=== PATIENT | male | born 1995 | race American Indian/Alaskan Native ===

== ENCOUNTER 2017-04-19 07:45 | Inpatient (IN) | payer MEDICAID ==
[2017-04-19 07:45] VITALS: BMI 20.7
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
[2017-04-19] MEDS ORDERED: Piperacillin/Tazobact 3.375 gm 100 ML IV STA (10:02)
[2017-04-19] MEDS ORDERED: Vancomycin 1 GM 1 GM/250 ML BAG IV STA (10:02)
[2017-04-19] MEDS ORDERED: Sodium Chloride 0.9% 500 ML IV STA (10:02)
[2017-04-19] MEDS ORDERED: Vancomycin 1 gm/NS 200 ml 1 GM/200 ML BAG IVPB STA (10:19)
[2017-04-19] MEDS ORDERED: Piperacillin/Tazobact 3.375 GM in Sodium Chloride 0.9% 100 ML IVPB STA (10:20)
[2017-04-19] MEDS ORDERED: Sodium Chloride 0.9% 500 ML IV ONE (10:35)
[2017-04-19 10:48] LABS: BASO % 0.2 % (0.0-2.0); EOS % 0.2 % (0.0-4.0); HEMOGLOBIN 10.7 g/dL (12.0-18.0); LYMPH # 2.1 K/uL (1.0-4.3); LYMPH % 9.4 % (20.0-40.0); MEAN CELL VOLUME 86.9 fL (80.0-94.0); MEAN CORPUSCULAR HGB CONC 33.3 g/dL (33.0-37.0); MEAN PLATELET VOLUME 8.2 fL (7.2-11.7); MONO # 1.8 K/uL (0.0-0.8); MONO % 8.4 % (0.0-10.0); NEUT # 17.9 K/uL (1.8-7.0); NEUT % 81.8 % (50.0-75.0); PLATELET COUNT 404 K/uL (130-400); RBC 3.68 Mil/uL (4.40-5.90); RED CELL DISTRIBUTION WIDTH 13.9 % (11.5-14.5)
[2017-04-19 10:51] LABS: WHITE BLOOD COUNT 21.9 K/uL (4.8-10.8)
[2017-04-19 10:56] LABS: ALB/GLOB RATIO 0.6 (1.0-2.1); ALBUMIN 2.2 g/dL (3.5-5.0); ALT/SGPT 22 U/L (21-72); AST/SGOT 21 U/L (17-59); BLOOD UREA NITROGEN 6 mg/dL (9-20); CALCIUM 7.2 mg/dl (8.6-10.4); GFR AFRICAN-AMERICAN > 60; GFR NON-AFRICAN AMERICAN > 60
[2017-04-19 11:47] LABS: VENOUS BLOOD GAS BASE EXCESS -1.2 mmol/L (0.0-2.0); VENOUS BLOOD GAS PCO2 39 mmHg (40-60); VENOUS BLOOD GAS PO2 27 mm/Hg (30-55); VENOUS BLOOD PH 7.39 (7.32-7.43)
[2017-04-19 12:01] LABS: BANDS 12 % (0-2); LYMPHOCYTE 8 % (20-40); MONOCYTE 3 % (0-10); NEUTROPHIL 77 % (50-75); PLATELET ESTIMATE NORMAL (NORMAL); TOTAL CELLS COUNTED 100
[2017-04-19 12:02] LABS: HYPOCHROMIC SLIGHT; LARGE PLATELETS PRESENT; TOXIC GRANULATION PRESENT
--- NOTE | 2017-04-19 15:04 | RAD ---
HISTORY: constipation COMPARISON: No prior. FINDINGS: BOWEL: Stool retention. No obstruction. No free air. BONES: Normal. OTHER FINDINGS: None. IMPRESSION: Stool retention. No mechanical obstruction
[2017-04-19 16:50] VITALS: RESP 20
[2017-04-19 17:28] VITALS: O2SAT 100
[2017-04-19] MEDS: Sodium Chloride 0.9% 1,000 ML IV SCH (17:46)
[2017-04-19] MEDS ORDERED: Piperacillin/Tazobact 3.375 GM in Sodium Chloride 100 ML IVPB SCH (18:00)
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
[2017-04-19] MEDS: Piperacill/Tazo 3.375gm in Dex 3.375 GM/50 ML BAG IVPB SCH (18:30)
[2017-04-19] MEDS ORDERED: Vancomycin 1 gm/NS 200 ml 1 GM/200 ML BAG IVPB SCH (22:00)
[2017-04-19] MEDS: Vancomycin 1 gm/NS 200 ml 1 GM/200 ML BAG IVPB SCH (22:12)
[2017-04-19 22:54] LABS: SQUAMOUS EPITHIAL < 1 /hpf (0-5); URINE BACTERIA OCC (<OCC)
[2017-04-19] MEDS ORDERED: Influenza Vaccine 60 mcg/0.5 mL SYR (4YR UP) IM ONE (22:54)
[2017-04-19] MEDS ORDERED: Pneumococcal 23-Valent Vaccine IM ONE (22:54)
[2017-04-19 22:55] LABS: URINE BILIRUBIN NEGATIVE (NEGATIVE); URINE BLOOD MODERATE (NEGATIVE); URINE CLARITY SL HAZY (Clear); URINE COLOR YELLOW (YELLOW); URINE GLUCOSE (UA) NEGATIVE (Normal); URINE LEUKOCYTE ESTERASE SMALL Leu/uL (Negative); URINE NITRATE NEGATIVE (NEGATIVE); URINE PROTEIN NEGATIVE (NEGATIVE); URINE UROBILINOGEN 0.2 mg/dL (0.2-1.0)
[2017-04-20] MEDS: Piperacill/Tazo 3.375gm in Dex 3.375 GM/50 ML BAG IVPB SCH ×2 (02:23→09:39)
[2017-04-20] MEDS: Sodium Chloride 0.9% 1,000 ML IV SCH (06:00)
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
[2017-04-20 07:18] LABS: INR 1.4
[2017-04-20 07:24] LABS: BASO # 0.1 K/uL (0.0-0.2); BASO % 0.4 % (0.0-2.0); EOS # 0.2 K/uL (0.0-0.7); EOS % 0.7 % (0.0-4.0); HEMOGLOBIN 10.3 g/dL (12.0-18.0); LYMPH # 1.9 K/uL (1.0-4.3); LYMPH % 9.2 % (20.0-40.0); MEAN CELL VOLUME 87.5 fL (80.0-94.0); MEAN CORPUSCULAR HEMOGLOBIN 29.2 pg (27.0-31.0); MEAN CORPUSCULAR HGB CONC 33.3 g/dL (33.0-37.0); MEAN PLATELET VOLUME 8.9 fL (7.2-11.7); MONO # 1.7 K/uL (0.0-0.8); MONO % 8.2 % (0.0-10.0); NEUT # 17.2 K/uL (1.8-7.0); NEUT % 81.5 % (50.0-75.0); PLATELET COUNT 396 K/uL (130-400); RBC 3.52 Mil/uL (4.40-5.90); RED CELL DISTRIBUTION WIDTH 14.1 % (11.5-14.5); WHITE BLOOD COUNT 21.1 K/uL (4.8-10.8)
[2017-04-20 07:34] LABS: PROTHROMBIN TIME 15.5 SECONDS (9.7-12.2)
[2017-04-20 07:58] LABS: ALB/GLOB RATIO 0.6 (1.0-2.1); ALBUMIN 2.1 g/dL (3.5-5.0); ALT/SGPT 15 U/L (21-72); AST/SGOT 22 U/L (17-59); BILIRUBIN,DIRECT 0.1 mg/dL (0.0-0.4); BLOOD UREA NITROGEN 5 mg/dL (9-20); CALCIUM 7.4 mg/dl (8.6-10.4); GFR AFRICAN-AMERICAN > 60; GFR NON-AFRICAN AMERICAN > 60
[2017-04-20 09:58] LABS: BANDS 8 % (0-2); LYMPHOCYTE 10 % (20-40); MONOCYTE 6 % (0-10); NEUTROPHIL 74 % (50-75); PLATELET ESTIMATE NORMAL (NORMAL); REACTIVE LYMPHOCYTES 2 % (0-0); TOTAL CELLS COUNTED 100
[2017-04-20 09:59] LABS: HYPOCHROMIC SLIGHT
[2017-04-20] MEDS: Vancomycin 1 gm/NS 200 ml 1 GM/200 ML BAG IVPB SCH (10:49)
[2017-04-20] MEDS ORDERED: Potassium Chloride 20 mEq ER Tab PO ONE (11:00)
[2017-04-20 15:03] VITALS: BP 96/60; PULSE 77; TEMP 98.4
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
[2017-04-21] MEDS ORDERED: Potassium Chloride 20 mEq ER Tab PO ONE (10:52)
== END 2017-04-20 15:00 | disposition left against medical advice (07) | DRG 271 ==
LOC: C.ER 07:45 → C.9E 13:37 → C.3T 15:06
PROVIDERS: ADMIT Internal Medicine; ATTEND Internal Medicine
DX: L89.313 Pressure ulcer of right buttock, stage 3 (principal); L89.312 Pressure ulcer of right buttock, stage 2; G20 Parkinson's disease; E83.51 Hypocalcemia; L97.519 Non-pressure chronic ulcer of other part of right foot with unspecified severity; E87.6 Hypokalemia; G82.20 Paraplegia, unspecified; G40.909 Epilepsy, unspecified, not intractable, without status epilepticus; E16.2 Hypoglycemia, unspecified; D72.829 Elevated white blood cell count, unspecified; D64.9 Anemia, unspecified; K59.00 Constipation, unspecified; F17.210 Nicotine dependence, cigarettes, uncomplicated; Z53.20 Procedure and treatment not carried out because of patient's decision for unspecified reasons

== ENCOUNTER 2017-05-23 20:15 | Emergency (ER) | payer MEDICAID ==
[2017-05-23 20:15] VITALS: BMI 20.7
[2017-05-23] MEDS ORDERED: Aspirin 325 mg EC Tablets PO STA (20:34)
[2017-05-23] MEDS ORDERED: Sodium Chloride 0.9% 1,000 ML IV ONE (20:34)
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
[2017-05-23] MEDS ORDERED: Sodium Chloride 0.9% 1,000 ML ONE (20:44)
[2017-05-23] MEDS ORDERED: Aspirin 325 mg EC Tablets PO ONE (20:44)
[2017-05-23 20:48] LABS: BASO # 0.1 K/uL (0.0-0.2); BASO % 0.6 % (0.0-2.0); EOS # 0.1 K/uL (0.0-0.7); EOS % 0.8 % (0.0-4.0); HEMOGLOBIN 9.1 g/dL (12.0-18.0); LYMPH # 1.5 K/uL (1.0-4.3); LYMPH % 13.2 % (20.0-40.0); MEAN CORPUSCULAR HEMOGLOBIN 27.5 pg (27.0-31.0); MEAN CORPUSCULAR HGB CONC 32.3 g/dL (33.0-37.0); MONO % 8.9 % (0.0-10.0); NEUT # 8.6 K/uL (1.8-7.0); NEUT % 76.5 % (50.0-75.0); NRBC % 0.1 % (0.0-2.0); RBC 3.31 Mil/uL (4.40-5.90); RED CELL DISTRIBUTION WIDTH 17.8 % (11.5-14.5); WHITE BLOOD COUNT 11.3 K/uL (4.8-10.8)
[2017-05-23 20:53] LABS: SQUAMOUS EPITHIAL < 1 /hpf (0-5); URINE BACTERIA RARE (<OCC); URINE BILIRUBIN NEGATIVE (NEGATIVE); URINE BLOOD NEGATIVE (NEGATIVE); URINE CLARITY Clear (Clear); URINE COLOR Straw (YELLOW); URINE GLUCOSE (UA) NORMAL (Normal); URINE LEUKOCYTE ESTERASE NEG Leu/uL (Negative); URINE PROTEIN NEGATIVE (NEGATIVE); URINE UROBILINOGEN NORMAL mg/dL (0.2-1.0)
[2017-05-23 20:58] LABS: ALB/GLOB RATIO 0.6 (1.0-2.1); ALBUMIN 2.6 g/dL (3.5-5.0); ALT/SGPT 25 U/L (21-72); AST/SGOT 14 U/L (17-59); BLOOD UREA NITROGEN 10 mg/dL (9-20); CALCIUM 8.1 mg/dl (8.6-10.4); GFR AFRICAN-AMERICAN > 60; GFR NON-AFRICAN AMERICAN > 60
[2017-05-23 21:03] LABS: MEAN CELL VOLUME 84.9 fL (80.0-94.0)
[2017-05-23 21:07] LABS: BARBITURATES, UR NEGATIVE (NEGATIVE); BENZODIAZEPINES, UR NEGATIVE (NEGATIVE); OPIATES, UR NEGATIVE (NEGATIVE); PHENCYCLIDINE, UR NEGATIVE (NEGATIVE)
[2017-05-24 05:44] VITALS: TEMP 98
[2017-05-24 09:24] VITALS: BP 112/70; PULSE 78; RESP 20; O2SAT 98
--- NOTE | 2017-05-25 09:03 | CARD ---
APPROVED REPORT EKG Measurement Heart [id number] <Conclusion> Sinus tachycardia Minimal voltage criteria for LVH, may be normal variant Borderline ECG
== END 2017-05-24 09:23 | disposition home or self-care (01) ==
LOC: C.ER 20:15
DX: R07.9 Chest pain, unspecified (principal); F12.10 Cannabis abuse, uncomplicated; G20 Parkinson's disease
CPT/HCPCS: 80053; 80324; 80345; 80346; 80349; 80353; 80358; 80361; 81001; 83992; 84484; 85025; 93005; 96360; 99285; J7040

== ENCOUNTER 2017-09-06 22:24 | Inpatient (IN) | payer MEDICAID ==
[2017-09-06 22:25] VITALS: BMI 19.8
[2017-09-06] MEDS ORDERED: Sodium Chloride 0.9% 1,000 ML IV ONE (23:52)
[2017-09-07] MEDS ORDERED: Sodium Chloride 0.9% 1,000 ML ONE
[2017-09-07 00:28] LABS: BASO # 0.1 K/uL (0.0-0.2); BASO % 0.9 % (0.0-2.0); EOS # 0.1 K/uL (0.0-0.7); EOS % 0.6 % (0.0-4.0); HEMOGLOBIN 8.4 g/dL (12.0-18.0); LYMPH # 1.9 K/uL (1.0-4.3); LYMPH % 12.1 % (20.0-40.0); MEAN CELL VOLUME 73.6 fL (80.0-94.0); MEAN CORPUSCULAR HEMOGLOBIN 23.4 pg (27.0-31.0); MEAN CORPUSCULAR HGB CONC 31.8 g/dL (33.0-37.0); MEAN PLATELET VOLUME 7.5 fL (7.2-11.7); MONO # 1.4 K/uL (0.0-0.8); MONO % 8.8 % (0.0-10.0); NEUT # 11.9 K/uL (1.8-7.0); NEUT % 77.6 % (50.0-75.0); RBC 3.57 Mil/uL (4.40-5.90); RED CELL DISTRIBUTION WIDTH 18.6 % (11.5-14.5); WHITE BLOOD COUNT 15.3 K/uL (4.8-10.8)
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
--- NOTE | 2017-09-07 00:32 | C.PDOC ---
Time Seen by Provider: 09/06/17 23:45 Chief Complaint (Nursing): Shortness Of Breath Past Medical History Vital Signs: Last Vital Signs Temp 99.4 F 09/07/17 00:23 Pulse 84 09/07/17 00:23 Resp 17 09/07/17 00:23 BP 129/85 09/07/17 00:23 Pulse Ox 97 09/07/17 00:23 - Medical History PMH: Parkinson's Disease, Seizures Denies: Diabetes, Hepatitis, HIV, HTN, Chronic Kidney Disease, Sexually Transmitted Disease - [facility] Procedures INJECT/INFUSE NEC (03/12/14) INSERT INDWELLING CATH (02/09/14) REPLACE INDWELLING CATH (11/18/13) Family History: States: Unknown Family Hx - Social History Hx Tobacco Use: No Hx Alcohol Use: No Hx Substance Use: No - Immunization History Hx Tetanus Toxoid Vaccination: No Hx Influenza Vaccination: No Hx Pneumococcal Vaccination: No ED Course And Treatment O2 Sat by Pulse Oximetry: 97 Disposition - Disposition
[2017-09-07 00:36] LABS: SQUAMOUS EPITHIAL < 1 /hpf (0-5); URINE BACTERIA RARE (<OCC); URINE BILIRUBIN NEGATIVE (NEGATIVE); URINE BLOOD NEGATIVE (NEGATIVE); URINE CLARITY Clear (Clear); URINE COLOR Yellow (YELLOW); URINE GLUCOSE (UA) NORMAL (Normal); URINE LEUKOCYTE ESTERASE NEG Leu/uL (Negative); URINE PROTEIN 1+ mg/dL (NEGATIVE)
[2017-09-07 00:40] LABS: INR 1.6; PROTHROMBIN TIME 17.3 SECONDS (9.7-12.2)
[2017-09-07 00:43] LABS: ALB/GLOB RATIO 0.6 (1.0-2.1); ALBUMIN 2.6 g/dL (3.5-5.0); ALT/SGPT 16 U/L (21-72); AST/SGOT 18 U/L (17-59); BLOOD UREA NITROGEN 6 mg/dL (9-20); CALCIUM 7.9 mg/dl (8.6-10.4); GFR AFRICAN-AMERICAN > 60; GFR NON-AFRICAN AMERICAN > 60
[2017-09-07] MEDS ORDERED: Piperacill/Tazo 3.375gm in Dex 3.375 GM/50 ML BAG IVPB STA (01:02)
[2017-09-07] MEDS ORDERED: Enoxaparin 40 mg Syringe SC STA (01:12)
[2017-09-07] MEDS ORDERED: Enoxaparin 40 mg Syringe ONE (01:38)
[2017-09-07 04:02] VITALS: RESP 20
--- NOTE | 2017-09-07 08:31 | RAD ---
PROCEDURE: CHEST RADIOGRAPH, 1 VIEW HISTORY: SOB COMPARISON: None available. FINDINGS: LUNGS: Clear. PLEURA: No pneumothorax or pleural fluid seen. CARDIOVASCULAR: Normal. OSSEOUS STRUCTURES: No significant abnormalities. VISUALIZED UPPER ABDOMEN: Normal. OTHER FINDINGS: None. IMPRESSION: No active disease.
[2017-09-07 09:01] LABS: BASO # 0.1 K/uL (0.0-0.2); BASO % 0.7 % (0.0-2.0); EOS # 0.2 K/uL (0.0-0.7); EOS % 1.3 % (0.0-4.0); HEMOGLOBIN 8.6 g/dL (12.0-18.0); LYMPH # 1.8 K/uL (1.0-4.3); LYMPH % 13.2 % (20.0-40.0); MEAN CELL VOLUME 73.6 fL (80.0-94.0); MEAN CORPUSCULAR HEMOGLOBIN 23.2 pg (27.0-31.0); MEAN CORPUSCULAR HGB CONC 31.5 g/dL (33.0-37.0); MEAN PLATELET VOLUME 7.1 fL (7.2-11.7); MONO # 1.1 K/uL (0.0-0.8); MONO % 7.9 % (0.0-10.0); NEUT # 10.6 K/uL (1.8-7.0); NEUT % 76.9 % (50.0-75.0); RBC 3.7 Mil/uL (4.40-5.90); RED CELL DISTRIBUTION WIDTH 17.9 % (11.5-14.5); WHITE BLOOD COUNT 13.8 K/uL (4.8-10.8)
[2017-09-07] MEDS: Piperacill/Tazo 3.375gm in Dex 3.375 GM/50 ML BAG IVPB SCH ×2 (09:10→17:50)
[2017-09-07 09:18] LABS: ALB/GLOB RATIO 0.6 (1.0-2.1); ALBUMIN 2.6 g/dL (3.5-5.0); ALT/SGPT 16 U/L (21-72); AST/SGOT 14 U/L (17-59); BLOOD UREA NITROGEN 4 mg/dL (9-20); CALCIUM 8.2 mg/dl (8.6-10.4); GFR AFRICAN-AMERICAN > 60; GFR NON-AFRICAN AMERICAN > 60
[2017-09-07] MEDS: Enoxaparin 40 mg Syringe SC SCH (09:56)
[2017-09-07] MEDS ORDERED: Enoxaparin 150 mg Syringe SC SCH (10:00)
--- NOTE | 2017-09-07 11:05 | CARD ---
APPROVED REPORT EKG Measurement Heart [id number] <Conclusion> Normal sinus rhythm Minimal voltage criteria for LVH, may be normal variant Borderline ECG
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
[2017-09-07] MEDS ORDERED: Potassium Chloride 20 mEq ER Tab PO ONE (18:00)
[2017-09-08] MEDS: Piperacill/Tazo 3.375gm in Dex 3.375 GM/50 ML BAG IVPB SCH ×3 (00:30→17:41)
[2017-09-08 06:55] LABS: BASO # 0.1 K/uL (0.0-0.2); BASO % 0.7 % (0.0-2.0); EOS # 0.2 K/uL (0.0-0.7); EOS % 2.1 % (0.0-4.0); HEMOGLOBIN 8.7 g/dL (12.0-18.0); LYMPH # 1.6 K/uL (1.0-4.3); MEAN CELL VOLUME 74.1 fL (80.0-94.0); MEAN CORPUSCULAR HEMOGLOBIN 23.4 pg (27.0-31.0); MEAN CORPUSCULAR HGB CONC 31.6 g/dL (33.0-37.0); MEAN PLATELET VOLUME 7.3 fL (7.2-11.7); MONO # 0.8 K/uL (0.0-0.8); MONO % 8.2 % (0.0-10.0); NEUT # 6.7 K/uL (1.8-7.0); RBC 3.73 Mil/uL (4.40-5.90); WHITE BLOOD COUNT 9.3 K/uL (4.8-10.8)
[2017-09-08 07:08] LABS: ALB/GLOB RATIO 0.6 (1.0-2.1); ALBUMIN 2.6 g/dL (3.5-5.0); ALT/SGPT 13 U/L (21-72); AST/SGOT 14 U/L (17-59); BLOOD UREA NITROGEN 5 mg/dL (9-20); CALCIUM 8.2 mg/dl (8.6-10.4); GFR AFRICAN-AMERICAN > 60; GFR NON-AFRICAN AMERICAN > 60
[2017-09-08] MEDS: Enoxaparin 40 mg Syringe SC SCH (09:32)
--- NOTE | 2017-09-08 14:07 | CP.PCM.PN ---
Subjective - Date & Time of Evaluation Date of Evaluation: 09/08/17 Time of Evaluation: 14:05 - Subjective Subjective: CHIEF COMPLAINTS TODAY : pain in the back. No further cough or expectoration ROS. HEENT : N. Resp : No cough, wheezing ,pleuritic CP ,or hemoptysis Cardio : No anginal CP, PND, orthopnea, palpitation GI : No abd.pain, n/v ,diarrhea or GI bleeding . 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 Musculoskel : No joint swelling , Derm : No rash Psych : Normal affect. Ext : No swelling ,calf pain PE. Pt. is alert awake in no distress. V.S As noted in the chart Head ,ear nose,throat and eyes : Normal. Neck : Supple with normal carotids. Lungs: Clear air entry. Heart : S1 & S2 normal with S4. No murmur. Abd : Soft non tender with normal bowel sounds. Neuro : no power in the lower extremities with paraplegia Ext : No edema with intact pulses.Non tender calves Derm : No rashes large sacral decubitus no discharge healing well LABS/RADIOLOGY: ASSESSMENT/PLAN : continue IV antibiotics and wound care. Objective - Vital Signs/Intake and Output Vital Signs (last 24 hours): Temp Pulse Resp BP Pulse Ox 98.1 F 85 20 109/59 L 97 09/08/17 07:45 09/08/17 07:45 09/08/17 07:45 09/08/17 07:45 09/08/17 07:45 Intake and Output: 09/08/17 09/08/17 11:59 23:59 Intake Total 450 Balance 450 - Medications Medications: Current Medications Enoxaparin Sodium (Lovenox) 40 mg SC DAILY [facility] Last Admin: 09/08/17 09:32 Dose: 40 mg Piperacillin Sod/Tazobactam Sod (Zosyn 3.375 Gm Iv Premix) 3.375 gm in 50 mls @ 100 mls/hr IVPB Q8H [facility] PRN Reason: Protocol Last Admin: 09/08/17 09:33 Dose: 100 mls/hr - Labs Labs: 09/08/17 06:41 09/08/17 06:41 PT 17.3 SECONDS (9.7-12.2) H 09/07/17 00:21 INR 1.6 09/07/17 00:21 APTT 36 SECONDS (21-34) H 09/07/17 00:21
[2017-09-09] MEDS: Piperacill/Tazo 3.375gm in Dex 3.375 GM/50 ML BAG IVPB SCH ×2 (00:25→09:53)
[2017-09-09 08:54] LABS: BASO # 0.1 K/uL (0.0-0.2); EOS # 0.3 K/uL (0.0-0.7); HEMOGLOBIN 8.7 g/dL (12.0-18.0); LYMPH # 1.4 K/uL (1.0-4.3); LYMPH % 19.2 % (20.0-40.0); MEAN CORPUSCULAR HGB CONC 32.4 g/dL (33.0-37.0); MEAN PLATELET VOLUME 7.5 fL (7.2-11.7); MONO # 0.6 K/uL (0.0-0.8); NEUT # 4.8 K/uL (1.8-7.0); NEUT % 66.8 % (50.0-75.0); RBC 3.64 Mil/uL (4.40-5.90); RED CELL DISTRIBUTION WIDTH 17.9 % (11.5-14.5); WHITE BLOOD COUNT 7.1 K/uL (4.8-10.8)
[2017-09-09 09:06] LABS: ALB/GLOB RATIO 0.5 (1.0-2.1); ALBUMIN 2.6 g/dL (3.5-5.0); ALT/SGPT 9 U/L (21-72); AST/SGOT 18 U/L (17-59); BLOOD UREA NITROGEN 6 mg/dL (9-20); CALCIUM 8.3 mg/dl (8.6-10.4); GFR AFRICAN-AMERICAN > 60; GFR NON-AFRICAN AMERICAN > 60
[2017-09-09] MEDS: Enoxaparin 40 mg Syringe SC SCH (09:53)
--- NOTE | 2017-09-09 11:41 | CP.PCM.PN ---
Subjective - Date & Time of Evaluation Date of Evaluation: 09/09/17 Time of Evaluation: 11:41 - Subjective Subjective: CHIEF COMPLAINTS TODAY : AFEBRILE, DENIES SOB. C/O PAIN BACK ROS. HEENT : N. Resp : No cough, wheezing ,pleuritic CP ,or hemoptysis Cardio : No anginal CP, PND, orthopnea, palpitation GI : No abd.pain, n/v ,diarrhea or GI bleeding . 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 Musculoskel : No joint swelling , Derm : B/L SACRAL DECUBITUS ULCERS -STAGE 4 Psych : Normal affect. Ext : No swelling ,calf pain PE. Pt. is alert awake in no distress. V.S As noted in the chart Head ,ear nose,throat and eyes : Normal. Neck : Supple with normal carotids. Lungs: Clear air entry. Heart : S1 & S2 normal with S4. No murmur. Abd : Soft non tender with normal bowel sounds. Neuro : no power in the lower extremities with paraplegia Ext : No edema with intact pulses.Non tender calves Derm : B/L SACRAL DECUBITUS ULCERS -STAGE 4- PINK BASE. LABS/RADIOLOGY: REVIEWED . WOUND CULTURE +VE PSEUDOMONAS AERUGINOSA/CORYNEBACTERIUM SP. ASSESSMENT/PLAN : DC IV ZOSYN. START IV CIPRO 400MG IV [id number].09/09/17. WOUND CARE .. Objective - Vital Signs/Intake and Output Vital Signs (last 24 hours): Temp Pulse Resp BP Pulse Ox 98.4 F 72 20 107/58 L 100 09/09/17 11:27 09/09/17 11:27 09/09/17 11:27 09/09/17 11:27 09/09/17 11:27 Intake and Output: 09/09/17 09/09/17 06:59 18:59 Intake Total 350 350 Balance 350 350 - Medications Medications: Current Medications Enoxaparin Sodium (Lovenox) 40 mg SC DAILY [facility] Last Admin: 09/09/17 09:53 Dose: 40 mg Ciprofloxacin (Cipro 400mg/200ml Dsw) 400 mg in 200 mls @ 133 mls/hr IVPB Q12H [facility] PRN Reason: Protocol - Labs Labs: 09/09/17 08:40 09/09/17 08:40 PT 17.3 SECONDS (9.7-12.2) H 09/07/17 00:21 INR 1.6 09/07/17 00:21 APTT 36 SECONDS (21-34) H 09/07/17 00:21 Assessment and Plan (1) Cough Status: Acute (2) Sacral decubitus ulcer, stage IV Status: Acute (3) Paraplegia Status: Chronic (4) Parkinsonism Status: Acute
[2017-09-09 11:46] LABS: CK-MB 1.77 ng/mL (0.0-3.38)
[2017-09-09] MEDS: Ciprofloxacin 400mg/200ml D5W 400 MG/200 ML BAG IVPB SCH (13:00)
--- NOTE | 2017-09-09 15:23 | CP.PCM.PN ---
Subjective - Date & Time of Evaluation Date of Evaluation: 09/09/17 Time of Evaluation: 15:22 - Subjective Subjective: CHIEF COMPLAINTS TODAY : pain in the back. No further cough or expectoration ROS. HEENT : N. Resp : No cough, wheezing ,pleuritic CP ,or hemoptysis Cardio : No anginal CP, PND, orthopnea, palpitation GI : No abd.pain, n/v ,diarrhea or GI bleeding . 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 Musculoskel : No joint swelling , Derm : No rash Psych : Normal affect. Ext : No swelling ,calf pain PE. Pt. is alert awake in no distress. V.S As noted in the chart Head ,ear nose,throat and eyes : Normal. Neck : Supple with normal carotids. Lungs: Clear air entry. Heart : S1 & S2 normal with S4. No murmur. Abd : Soft non tender with normal bowel sounds. Neuro : no power in the lower extremities with paraplegia Ext : No edema with intact pulses.Non tender calves Derm : No rashes large sacral decubitus no discharge healing well LABS/RADIOLOGY: culture of the wound on the sacral area shows Pseudomonas and Corynebacterium ASSESSMENT/PLAN : patient is on Cipro, sensitive to current bacteria in the wound. We will discuss with ID for discharge planning Objective - Vital Signs/Intake and Output Vital Signs (last 24 hours): Temp Pulse Resp BP Pulse Ox 98.4 F 72 20 107/58 L 100 09/09/17 11:27 09/09/17 11:27 09/09/17 11:27 09/09/17 11:27 09/09/17 11:27 Intake and Output: 09/09/17 09/09/17 11:59 23:59 Intake Total 350 Balance 350 - Medications Medications: Current Medications Enoxaparin Sodium (Lovenox) 40 mg SC DAILY [facility] Last Admin: 09/09/17 09:53 Dose: 40 mg Ciprofloxacin (Cipro 400mg/200ml Dsw) 400 mg in 200 mls @ 133 mls/hr IVPB Q12H [facility] PRN Reason: Protocol Last Admin: 09/09/17 13:00 Dose: 133 mls/hr - Labs Labs: 09/09/17 08:40 09/09/17 08:40 PT 17.3 SECONDS (9.7-12.2) H 09/07/17 00:21 INR 1.6 09/07/17 00:21 APTT 36 SECONDS (21-34) H 09/07/17 00:21
[2017-09-10] MEDS: Ciprofloxacin 400mg/200ml D5W 400 MG/200 ML BAG IVPB SCH (00:08)
[2017-09-10 06:48] LABS: BASO # 0.1 K/uL (0.0-0.2); BASO % 0.9 % (0.0-2.0); EOS # 0.2 K/uL (0.0-0.7); EOS % 4.1 % (0.0-4.0); HEMOGLOBIN 9.2 g/dL (12.0-18.0); LYMPH # 1.4 K/uL (1.0-4.3); LYMPH % 23.6 % (20.0-40.0); MEAN CELL VOLUME 73.7 fL (80.0-94.0); MEAN CORPUSCULAR HEMOGLOBIN 23.2 pg (27.0-31.0); MEAN CORPUSCULAR HGB CONC 31.4 g/dL (33.0-37.0); MEAN PLATELET VOLUME 7.3 fL (7.2-11.7); MONO # 0.5 K/uL (0.0-0.8); MONO % 8.5 % (0.0-10.0); NEUT # 3.7 K/uL (1.8-7.0); NEUT % 62.9 % (50.0-75.0); NRBC % 0.1 % (0.0-2.0); RBC 3.98 Mil/uL (4.40-5.90); RED CELL DISTRIBUTION WIDTH 17.7 % (11.5-14.5); WHITE BLOOD COUNT 5.9 K/uL (4.8-10.8)
[2017-09-10 07:39] VITALS: BP 131/83; PULSE 79; TEMP 98.1; O2SAT 95
[2017-09-10 07:40] LABS: ALB/GLOB RATIO 0.6 (1.0-2.1); ALBUMIN 2.8 g/dL (3.5-5.0); ALT/SGPT 14 U/L (21-72); AST/SGOT 28 U/L (17-59); BLOOD UREA NITROGEN 6 mg/dL (9-20); CALCIUM 8.4 mg/dl (8.6-10.4); GFR AFRICAN-AMERICAN > 60; GFR NON-AFRICAN AMERICAN > 60
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
== END 2017-09-10 09:37 | disposition left against medical advice (07) | DRG 586 ==
LOC: C.ER 22:24 → C.9E 09-07 01:00 → C.3T 09-07 01:25
PROVIDERS: ADMIT Internal Medicine Cardiovascular Disease; ATTEND Internal Medicine Cardiovascular Disease
DX: J06.9 Acute upper respiratory infection, unspecified (principal); L89.154 Pressure ulcer of sacral region, stage 4; J40 Bronchitis, not specified as acute or chronic; D72.829 Elevated white blood cell count, unspecified; G82.20 Paraplegia, unspecified; G20 Parkinson's disease; W34.00XS Accidental discharge from unspecified firearms or gun, sequela; Z87.891 Personal history of nicotine dependence; Z99.3 Dependence on wheelchair

== ENCOUNTER 2017-09-10 18:07 | Inpatient (IN) | payer MEDICAID ==
[2017-09-10 18:08] VITALS: BMI 19.8
[2017-09-10 20:26] LABS: BASO # 0.1 K/uL (0.0-0.2); BASO % 0.8 % (0.0-2.0); EOS # 0.2 K/uL (0.0-0.7); EOS % 1.7 % (0.0-4.0); HEMOGLOBIN 9.4 g/dL (12.0-18.0); LYMPH # 2.3 K/uL (1.0-4.3); MEAN CELL VOLUME 74.4 fL (80.0-94.0); MEAN CORPUSCULAR HEMOGLOBIN 23.2 pg (27.0-31.0); MEAN CORPUSCULAR HGB CONC 31.2 g/dL (33.0-37.0); MEAN PLATELET VOLUME 7.5 fL (7.2-11.7); MONO # 0.6 K/uL (0.0-0.8); NEUT # 6.5 K/uL (1.8-7.0); NEUT % 67.5 % (50.0-75.0); RBC 4.04 Mil/uL (4.40-5.90); RED CELL DISTRIBUTION WIDTH 18.1 % (11.5-14.5)
[2017-09-10 20:29] LABS: WHITE BLOOD COUNT 9.6 K/uL (4.8-10.8)
[2017-09-10 20:41] LABS: ALB/GLOB RATIO 0.6 (1.0-2.1); ALT/SGPT 12 U/L (21-72); AST/SGOT 22 U/L (17-59); BLOOD UREA NITROGEN 8 mg/dL (9-20); CALCIUM 8.5 mg/dl (8.6-10.4); GFR AFRICAN-AMERICAN > 60; GFR NON-AFRICAN AMERICAN > 60
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
[2017-09-10] MEDS ORDERED: Ciprofloxacin 400mg/200ml D5W 400 MG/200 ML BAG IVPB ONE (23:01)
[2017-09-10] MEDS: Ciprofloxacin 400mg/200ml D5W 400 MG/200 ML BAG IVPB SCH (23:02)
[2017-09-11] MEDS: Ciprofloxacin 400mg/200ml D5W 400 MG/200 ML BAG IVPB SCH ×2 (10:01→21:31)
[2017-09-11] MEDS: Enoxaparin 40 mg Syringe SC SCH (10:04)
[2017-09-11] MEDS: Pantoprazole 40 mg EC Tab PO SCH (10:05)
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
[2017-09-11] MEDS: Saccharomyces Boulardi 250 mg Cap PO SCH ×2 (12:23→18:26)
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
[2017-09-11 23:45] VITALS: RESP 20
[2017-09-12] MEDS: Enoxaparin 40 mg Syringe SC SCH (10:02)
[2017-09-12] MEDS: Ciprofloxacin 400mg/200ml D5W 400 MG/200 ML BAG IVPB SCH ×2 (10:02→22:00)
[2017-09-12] MEDS: Pantoprazole 40 mg EC Tab PO SCH (10:02)
[2017-09-12] MEDS: Saccharomyces Boulardi 250 mg Cap PO SCH ×2 (10:02→17:35)
--- NOTE | 2017-09-12 18:43 | CP.PCM.PN ---
Subjective - Date & Time of Evaluation Date of Evaluation: 09/12/17 Time of Evaluation: 18:43 - Subjective Subjective: CHIEF COMPLAINTS TODAY : AFEBRILE, OOB ON CHAIR NO COMPLAINTS ROS. HEENT : N. Resp : No cough, wheezing ,pleuritic CP ,or hemoptysis Cardio : No anginal CP, PND, orthopnea, palpitation GI : No abd.pain, n/v ,diarrhea or GI bleeding . 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 Musculoskel : No joint swelling , Derm : B/L SACRAL DECUBITUS ULCERS -STAGE 4 Psych : Normal affect. Ext : No swelling ,calf pain PE. Pt. is alert awake in no distress. V.S As noted in the chart Head ,ear nose,throat and eyes : Normal. Neck : Supple with normal carotids. Lungs: Clear air entry. Heart : S1 & S2 normal with S4. No murmur. Abd : Soft non tender with normal bowel sounds. Neuro : no power in the lower extremities with paraplegia Ext : No edema with intact pulses.Non tender calves Derm : B/L SACRAL DECUBITUS ULCERS -STAGE 4- [place]. LABS/RADIOLOGY: REVIEWED . WOUND CULTURE 09/07/17 +VE PSEUDOMONAS AERUGINOSA.( LAST ADMISSION ) ASSESSMENT/PLAN : REPEAT WOUND CULTURE-discussed with RN. Wound cultures not done today at the dressing . Reminded the nurse to do the wound cultures sacrum next dressing in a.m. to see if decubitus ulcers cultures are ? COLONIZATION. CONTINUE IV CIPRO 400MG IV [id number].09/11/17 WOUND CARE .. Objective - Vital Signs/Intake and Output Vital Signs (last 24 hours): Temp Pulse Resp BP Pulse Ox 97.8 F 82 20 123/80 98 09/12/17 15:00 09/12/17 15:00 09/12/17 15:00 09/12/17 15:00 09/12/17 15:00 Intake and Output: 09/12/17 09/12/17 06:59 18:59 Intake Total 250 Balance 250 - Medications Medications: Current Medications Enoxaparin Sodium (Lovenox) 40 mg SC DAILY [facility] Last Admin: 09/12/17 10:02 Dose: Not Given Ciprofloxacin (Cipro 400mg/200ml Dsw) 400 mg in 200 mls @ 133 mls/hr IVPB Q12H [facility] PRN Reason: Protocol Last Admin: 09/12/17 10:02 Dose: 133 mls/hr Pantoprazole Sodium (Protonix Ec Tab) 40 mg PO DAILY [facility] Last Admin: 09/12/17 10:02 Dose: Not Given Saccharomyces Boulardii (Florastor) 250 mg PO BID [facility] Last Admin: 09/12/17 17:35 Dose: 250 mg - Labs Labs: 09/10/17 20:21 09/10/17 20:21 Assessment and Plan (1) Decubitus ulcer, stage 4 with infection Status: Acute (2) Parkinsonism Status: Acute (3) Paraplegia Status: Chronic
--- NOTE | 2017-09-12 19:23 | CP.PCM.PN ---
Subjective - Date & Time of Evaluation Date of Evaluation: 09/12/17 Time of Evaluation: 11:00 - Subjective Subjective: clinically same Objective - Vital Signs/Intake and Output Vital Signs (last 24 hours): Temp Pulse Resp BP Pulse Ox 97.8 F 82 20 123/80 98 09/12/17 15:00 09/12/17 15:00 09/12/17 15:00 09/12/17 15:00 09/12/17 15:00 Intake and Output: 09/12/17 09/13/17 18:59 06:59 Intake Total 250 Balance 250 - Medications Medications: Current Medications Enoxaparin Sodium (Lovenox) 40 mg SC DAILY [facility] Last Admin: 09/12/17 10:02 Dose: Not Given Ciprofloxacin (Cipro 400mg/200ml Dsw) 400 mg in 200 mls @ 133 mls/hr IVPB Q12H [facility] PRN Reason: Protocol Last Admin: 09/12/17 10:02 Dose: 133 mls/hr Pantoprazole Sodium (Protonix Ec Tab) 40 mg PO DAILY [facility] Last Admin: 09/12/17 10:02 Dose: Not Given Saccharomyces Boulardii (Florastor) 250 mg PO BID [facility] Last Admin: 09/12/17 17:35 Dose: 250 mg - Labs Labs: 09/10/17 20:21 09/10/17 20:21 - Constitutional Appears: Well - Head Exam Head Exam: ATRAUMATIC, NORMAL INSPECTION, NORMOCEPHALIC - Eye Exam Eye Exam: EOMI, Normal appearance, PERRL Pupil Exam: NORMAL ACCOMODATION, PERRL - ENT Exam ENT Exam: Mucous Membranes Moist, Normal Exam - Neck Exam Neck Exam: Full ROM, Normal Inspection. absent: Lymphadenopathy - Respiratory Exam Respiratory Exam: Decreased Breath Sounds - Cardiovascular Exam Cardiovascular Exam: REGULAR RHYTHM, +S1, +S2 - GI/Abdominal Exam GI & Abdominal Exam: Soft, Diminished Bowel Sounds - Rectal Exam Rectal Exam: Deferred
[2017-09-13 07:42] VITALS: BP 132/67; PULSE 76; TEMP 98.1; O2SAT 99
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
[2017-09-13] MEDS: Ciprofloxacin 400mg/200ml D5W 400 MG/200 ML BAG IVPB SCH (09:48)
[2017-09-13] MEDS: Saccharomyces Boulardi 250 mg Cap PO SCH (09:48)
[2017-09-13] MEDS: Pantoprazole 40 mg EC Tab PO SCH (09:49)
[2017-09-13] MEDS: Enoxaparin 40 mg Syringe SC SCH (09:49)
[2017-09-13 11:27] LABS: BASO # 0.1 K/uL (0.0-0.2); BASO % 0.8 % (0.0-2.0); EOS # 0.1 K/uL (0.0-0.7); EOS % 1.3 % (0.0-4.0); HEMOGLOBIN 9.8 g/dL (12.0-18.0); LYMPH # 2.1 K/uL (1.0-4.3); LYMPH % 19.9 % (20.0-40.0); MEAN CELL VOLUME 73.8 fL (80.0-94.0); MEAN CORPUSCULAR HEMOGLOBIN 23.6 pg (27.0-31.0); MEAN PLATELET VOLUME 7.2 fL (7.2-11.7); MONO # 0.8 K/uL (0.0-0.8); MONO % 7.2 % (0.0-10.0); NEUT # 7.6 K/uL (1.8-7.0); NEUT % 70.8 % (50.0-75.0); RBC 4.14 Mil/uL (4.40-5.90); RED CELL DISTRIBUTION WIDTH 18.7 % (11.5-14.5); WHITE BLOOD COUNT 10.8 K/uL (4.8-10.8)
[2017-09-13 11:41] LABS: ALB/GLOB RATIO 0.6 (1.0-2.1); ALT/SGPT 15 U/L (21-72); AST/SGOT 28 U/L (17-59); BLOOD UREA NITROGEN 15 mg/dL (9-20); CALCIUM 8.5 mg/dl (8.6-10.4); GFR AFRICAN-AMERICAN > 60; GFR NON-AFRICAN AMERICAN > 60
== END 2017-09-13 13:46 | disposition left against medical advice (07) | DRG 271 ==
LOC: C.ER 18:07 → C.9E 22:03 → C.5S 22:47
PROVIDERS: ADMIT Internal Medicine Nephrology; ATTEND Internal Medicine Nephrology
DX: L89.154 Pressure ulcer of sacral region, stage 4 (principal); G20 Parkinson's disease; G82.20 Paraplegia, unspecified; Z87.891 Personal history of nicotine dependence; Z87.828 Personal history of other (healed) physical injury and trauma; Z99.3 Dependence on wheelchair

== ENCOUNTER 2017-10-17 14:59 | Emergency (ER) | payer MEDICAID ==
[2017-10-17 15:12] VITALS: BMI 19.2
[2017-10-17 15:17] VITALS: RESP 20
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
[2017-10-17] MEDS ORDERED: Sodium Chloride 0.9% 1,000 ML ONE (15:31)
[2017-10-17] MEDS: Sodium Chloride 0.9% 1,000 ML IV ONE (15:40)
[2017-10-17 15:51] LABS: BASO # 0.1 K/uL (0.0-0.2); BASO % 0.6 % (0.0-2.0); EOS # 0.3 K/uL (0.0-0.7); EOS % 2.2 % (0.0-4.0); HEMOGLOBIN 9.3 g/dL (12.0-18.0); LYMPH # 1.6 K/uL (1.0-4.3); MEAN CELL VOLUME 73.2 fL (80.0-94.0); MEAN CORPUSCULAR HEMOGLOBIN 23.2 pg (27.0-31.0); MEAN CORPUSCULAR HGB CONC 31.7 g/dL (33.0-37.0); MONO # 0.8 K/uL (0.0-0.8); NEUT # 10.3 K/uL (1.8-7.0); NEUT % 79.2 % (50.0-75.0); RED CELL DISTRIBUTION WIDTH 18.9 % (11.5-14.5)
--- NOTE | 2017-10-17 16:25 | RAD ---
Date of service: 10/17/2017 PROCEDURE: Radiographs of the chest and abdomen (obstructive series) HISTORY: Abdominal pain COMPARISON: No prior. TECHNIQUE: AP radiograph of the chest, with upright and supine radiographs of the abdomen. FINDINGS: CHEST: Lungs: The lungs are clear. Cardiovascular: Normal size heart. No pulmonary vascular congestion. Pleura: No pleural fluid. No pneumothorax. Other findings: None. ABDOMEN AND PELVIS: Bowel: There is large amount of stool in the colon. The bowel gas pattern is nonobstructive. Free air: None. Bones: Unremarkable. Other findings: None. IMPRESSION: Constipation. No evidence of mechanical bowel obstruction. Clear lungs.
[2017-10-17 16:55] LABS: ALB/GLOB RATIO 0.6 (1.0-2.1); ALBUMIN 2.9 g/dL (3.5-5.0); AST/SGOT 10 U/L (17-59); BLOOD UREA NITROGEN 8 mg/dL (9-20); CALCIUM 8.4 mg/dl (8.6-10.4); GFR AFRICAN-AMERICAN > 60; GFR NON-AFRICAN AMERICAN > 60
[2017-10-17 16:56] LABS: ALT/SGPT 17 U/L (21-72)
[2017-10-17 17:01] LABS: URINE BACTERIA RARE (<OCC); URINE BILIRUBIN NEGATIVE (NEGATIVE); URINE BLOOD 2+ (NEGATIVE); URINE CLARITY Hazy (Clear); URINE COLOR Yellow (YELLOW); URINE GLUCOSE (UA) 1+ mg/dL (Normal); URINE LEUKOCYTE ESTERASE 3+ Leu/uL (Negative); URINE PROTEIN 3+ mg/dL (NEGATIVE); URINE UROBILINOGEN NORMAL mg/dL (0.2-1.0); WBC CLUMPS FEW /hpf
[2017-10-17] MEDS ORDERED: cefTRIAXone IV 1 gm in Dextros 50 ML IVPB ONE (17:34)
[2017-10-17] MEDS: cefTRIAXone IV 1 gm in Dextros 50 ML IV ONE (17:34)
[2017-10-17 17:36] VITALS: BP 111/51; PULSE 60; TEMP 98.4
[2017-10-17 17:52] VITALS: O2SAT 96
== END 2017-10-17 18:09 | disposition home or self-care (01) ==
LOC: C.ER 14:59
DX: R33.9 Retention of urine, unspecified (principal); N39.0 Urinary tract infection, site not specified; K59.00 Constipation, unspecified; L89.309 Pressure ulcer of unspecified buttock, unspecified stage; G82.20 Paraplegia, unspecified
CPT/HCPCS: 51701; 74022; 80053; 81001; 83605; 85025; 87086; 96361; 96365; 96375; 99285; J0696; J1885; J2405; J7030

== ENCOUNTER 2018-04-25 08:10 | Observation (INO) | payer MEDICAID ==
[2018-04-25 08:10] VITALS: BMI 19.2
[2018-04-25] MEDS ORDERED: Sodium Chloride 0.9% 1,000 ML IV ONE (08:36)
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
[2018-04-25] MEDS ORDERED: Sodium Chloride 0.9% 1,000 ML ONE (08:52)
[2018-04-25 09:21] LABS: BASO # 0.1 K/uL (0.0-0.2); BASO % 0.4 % (0.0-2.0); EOS % 0.2 % (0.0-4.0); HEMOGLOBIN 10.5 g/dL (12.0-18.0); LYMPH % 8.4 % (20.0-40.0); MEAN CORPUSCULAR HEMOGLOBIN 24.3 pg (27.0-31.0); MEAN PLATELET VOLUME 6.9 fL (7.2-11.7); MONO # 1.1 K/uL (0.0-0.8); MONO % 8.6 % (0.0-10.0); NEUT # 10.2 K/uL (1.8-7.0); NEUT % 82.4 % (50.0-75.0); PLATELET COUNT 505 K/uL (130-400); RBC 4.32 Mil/uL (4.40-5.90); WHITE BLOOD COUNT 12.3 K/uL (4.8-10.8)
[2018-04-25 09:25] LABS: MEAN CELL VOLUME 75.9 fL (80.0-94.0)
--- NOTE | 2018-04-25 09:32 | RAD ---
Date of service: 04/25/2018 PROCEDURE: CHEST RADIOGRAPH, 1 VIEW HISTORY: cough COMPARISON: 09/07/2017 FINDINGS: LUNGS: Clear. PLEURA: No pneumothorax or significant appearing pleural fluid seen. The extreme costophrenic angle the left is excluded from this image CARDIOVASCULAR: No aortic atherosclerotic calcification present. Normal heart size. No significant appearing pulmonary venous congestion. OSSEOUS STRUCTURES: No significant abnormalities. VISUALIZED UPPER ABDOMEN: Normal. OTHER FINDINGS: None. IMPRESSION: No acute cardiopulmonary pathology appreciated. No interval pathology noted
[2018-04-25 09:36] LABS: BLOOD UREA NITROGEN 7 mg/dL (9-20); CALCIUM 8.3 mg/dl (8.6-10.4); GFR NON-AFRICAN AMERICAN > 60; SQUAMOUS EPITHIAL 1 /hpf (0-5); URINE AMORPHOUS SEDIMENT RARE /ul (<OCC); URINE BACTERIA MANY (<OCC); URINE BILIRUBIN NEGATIVE (NEGATIVE); URINE BLOOD NEGATIVE (NEGATIVE); URINE CLARITY Hazy (Clear); URINE COLOR Amber (YELLOW); URINE GLUCOSE (UA) NORMAL (Normal); URINE LEUKOCYTE ESTERASE 3+ Leu/uL (Negative); URINE PROTEIN 3+ mg/dL (NEGATIVE); WBC CLUMPS OCC /hpf
[2018-04-25 09:47] LABS: BANDS 2 % (0-2); NEUTROPHIL 83 % (50-75); TOTAL CELLS COUNTED 100
[2018-04-25 09:48] LABS: ANISOCYTOSIS SLIGHT; HYPOCHROMIC SLIGHT; LYMPHOCYTE 8 % (20-40); MONOCYTE 7 % (0-10); PLATELET ESTIMATE INCREASED (NORMAL)
[2018-04-25 09:49] LABS: OVALOCYTES SLIGHT
[2018-04-25] MEDS ORDERED: Sodium Chloride 0.9% 2,000 ML ONE (12:15)
[2018-04-25 15:59] VITALS: RESP 20
[2018-04-25] MEDS: Sodium Chloride 0.9% 1,000 ML IV SCH (19:18)
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
[2018-04-26] MEDS: Sodium Chloride 0.9% 1,000 ML IV SCH (04:45)
[2018-04-26 06:55] VITALS: O2SAT 99
[2018-04-26 08:36] VITALS: BP 115/64; PULSE 94; TEMP 99.7
[2018-04-26] MEDS ORDERED: Enoxaparin 40 mg Syringe SC SCH (10:00)
[2018-04-26] MEDS ORDERED: Multiple Vitamins Tab PO SCH (10:00)
[2018-04-26] MEDS: POLYETHYLENE GLYCOL 3350 17 GM/Dose PACKET PO SCH ×2 (13:24→13:31)
--- NOTE | 2018-04-26 14:36 | CP.PCM.PN ---
Subjective - Date & Time of Evaluation Date of Evaluation: 04/26/18 Time of Evaluation: 14:36 - Subjective Subjective: PATIENT SEEN AND EXAMINED AT THE BEDSIDE Objective - Vital Signs/Intake and Output Vital Signs (last 24 hours): Temp Pulse Resp BP Pulse Ox 99.7 F H 94 H 20 115/64 99 04/26/18 08:35 04/26/18 08:35 04/26/18 08:35 04/26/18 08:35 04/26/18 08:35 Intake and Output: 04/26/18 04/26/18 06:59 18:59 Intake Total 800 Balance 800 - Medications Medications: Current Medications Acetaminophen (Tylenol 325mg Tab) 650 mg PO Q6 PRN PRN Reason: Fever >100.4 F Enoxaparin Sodium (Lovenox) 40 mg SC DAILY [facility] Last Admin: 04/26/18 09:22 Dose: 40 mg Ceftriaxone Sodium 1 gm/ (Sodium Chloride) 100 mls @ 100 mls/hr IVPB DAILY [facility]; Protocol Last Admin: 04/26/18 09:22 Dose: 100 mls/hr Sodium Chloride (Sodium Chloride 0.9%) 1,000 mls @ 100 mls/hr IV .Q10H [facility] Last Admin: 04/26/18 04:45 Dose: Not Given Influenza Virus Vaccine (Flucelvax Quad 5929-0129 Syr) 60 mcg IM .ONCE ONE Stop: 04/27/18 10:01 Ketorolac Tromethamine (Toradol) 30 mg IVP Q6 PRN PRN Reason: Pain, moderate (4-7) Last Admin: 04/26/18 06:58 Dose: 30 mg Multivitamins (Hexavitamin) 1 tab PO DAILY [facility] Last Admin: 04/26/18 09:22 Dose: 1 tab Ondansetron HCl (Zofran Inj) 4 mg IVP Q6 PRN PRN Reason: Nausea/Vomiting Last Admin: 04/25/18 19:24 Dose: 4 mg Pneumococcal Polyvalent Vaccine (Pneumovax 23 Vaccine) 0.5 ml IM .ONCE ONE Stop: 04/27/18 10:01 Polyethylene Glycol (Miralax) 17 gm PO DAILY [facility] Last Admin: 04/26/18 13:31 Dose: Not Given Quetiapine Fumarate (Seroquel) 50 mg PO HS [facility] Last Admin: 04/25/18 22:43 Dose: 50 mg Tramadol HCl (Ultram) 50 mg PO TID PRN PRN Reason: Pain, moderate (4-7) - Labs Labs: 04/25/18 09:13 04/25/18 09:13 Assessment and Plan - Assessment and Plan (Free Text) Assessment: FOLLOW UP WITH DR CALIX IN HIS OFFICE ------CALL FOR APPOINTMENT CONTINUE HOME MEDICATION NEW PRESCRIPTION GIVEN BY ER DOCTOR ACTIVITY TOLERATED CALL DR CALIX OR GO TO THE EMERGENCY ROOM IF SYMPTOM RETURN OR WORSENING
--- NOTE | 2018-04-26 17:33 | CARD ---
APPROVED REPORT Date of service: 04/25/2018 EKG Measurement Heart [id number] <Conclusion> Normal sinus rhythm Normal ECG
--- NOTE | 2018-04-26 21:37 | CP.PCM.DIS ---
Provider - Provider Date of Admission: 04/25/18 12:10 Attending physician: Jorge L Soto MD Consults: 04/25/18 14:52 Nursing Referral for Wound Care Routine Comment: Physician Instructions: Reason For Exam: sacral wounds Time Spent in preparation of Discharge (in minutes): 30 Hospital Course - Lab Results Lab Results: Micro Results 04/25/18 12:47 Blood Blood Culture - Preliminary NO GROWTH AFTER 24 HOURS 04/25/18 12:00 Blood Blood Culture - Preliminary NO GROWTH AFTER 24 HOURS 04/25/18 09:13 Urine Random Urine Culture - Preliminary Gram Negative Kushal Most Recent Lab Values WBC 12.3 K/uL (4.8-10.8) H 04/25/18 09:13 RBC 4.32 Mil/uL (4.40-5.90) L 04/25/18 09:13 Hgb 10.5 g/dL (12.0-18.0) L 04/25/18 09:13 Hct 32.8 % (35.0-51.0) L 04/25/18 09:13 MCV 75.9 fL (80.0-94.0) L D 04/25/18 09:13 MCH 24.3 pg (27.0-31.0) L 04/25/18 09:13 MCHC 32.0 g/dL (33.0-37.0) L 04/25/18 09:13 RDW 17.0 % (11.5-14.5) H 04/25/18 09:13 Plt Count 505 K/uL (130-400) H 04/25/18 09:13 MPV 6.9 fL (7.2-11.7) L 04/25/18 09:13 Neut % (Auto) 82.4 % (50.0-75.0) H 04/25/18 09:13 Lymph % (Auto) 8.4 % (20.0-40.0) L 04/25/18 09:13 [place] % (Auto) 8.6 % (0.0-10.0) 04/25/18 09:13 Eos % (Auto) 0.2 % (0.0-4.0) 04/25/18 09:13 Baso % (Auto) 0.4 % (0.0-2.0) 04/25/18 09:13 Neut # (Auto) 10.2 K/uL (1.8-7.0) H 04/25/18 09:13 Lymph # (Auto) 1.0 K/uL (1.0-4.3) 04/25/18 09:13 [place] # (Auto) 1.1 K/uL (0.0-0.8) H 04/25/18 09:13 Eos # (Auto) 0.0 K/uL (0.0-0.7) 04/25/18 09:13 Baso # (Auto) 0.1 K/uL (0.0-0.2) 04/25/18 09:13 Neutrophils % (Manual) 83 % (50-75) H 04/25/18 09:13 Band Neutrophils % 2 % (0-2) 04/25/18 09:13 Lymphocytes % (Manual) 8 % (20-40) L 04/25/18 09:13 Monocytes % (Manual) 7 % (0-10) 04/25/18 09:13 Platelet Estimate Increased (NORMAL) H 04/25/18 09:13 Hypochromasia (manual) Slight 04/25/18 09:13 Anisocytosis (manual) Slight 04/25/18 09:13 Ovalocytes Slight 04/25/18 09:13 Sodium 133 mmol/L (132-148) 04/25/18 09:13 Potassium 4.1 mmol/L (3.6-5.2) 04/25/18 09:13 Chloride 101 mmol/L (98-107) 04/25/18 09:13 Carbon Dioxide 24 mmol/L (22-30) 04/25/18 09:13 Anion Gap 11 (10-20) 04/25/18 09:13 BUN 7 mg/dL (9-20) L 04/25/18 09:13 Creatinine 0.6 mg/dL (0.8-1.5) L 04/25/18 09:13 Est GFR ( Amer) > 60 04/25/18 09:13 Est GFR (Non-Af Amer) > 60 04/25/18 09:13 Random Glucose 83 mg/dL (75-110) D 04/25/18 09:13 Calcium 8.3 mg/dl (8.6-10.4) L 04/25/18 09:13 Urine Color Annelise (YELLOW) 04/25/18 09:13 Urine Clarity Hazy (Clear) 04/25/18 09:13 Urine pH 8.0 (5.0-8.0) 04/25/18 09:13 Ur Specific [place] 1.022 (1.003-1.030) 04/25/18 09:13 Urine Protein 3+ mg/dL (NEGATIVE) H 04/25/18 09:13 Urine Glucose (UA) Normal mg/dL (Normal) 04/25/18 09:13 Urine Ketones Negative mg/dL (NEGATIVE) 04/25/18 09:13 Urine Blood Negative (NEGATIVE) 04/25/18 09:13 Urine Nitrate Positive (NEGATIVE) H 04/25/18 09:13 Urine Bilirubin Negative (NEGATIVE) 04/25/18 09:13 Urine Urobilinogen 4.0 mg/dL (0.2-1.0) 04/25/18 09:13 Ur Leukocyte Esterase 3+ Kevin/uL (Negative) H 04/25/18 09:13 Urine WBC (Auto) 308 /hpf (0-5) H 04/25/18 09:13 Urine RBC (Auto) 17 /hpf (0-3) H 04/25/18 09:13 Urine WBC Clumps (Auto) Occ /hpf (NONE) H 04/25/18 09:13 Ur Squamous Epith Cells 1 /hpf (0-5) 04/25/18 09:13 Amorphous Sediment Rare /ul (<OCC) H 04/25/18 09:13 Urine Bacteria Many (<OCC) H 04/25/18 09:13 Influenza Typ A,B (EIA) Negative for flu a/b (NEGATIVE) 04/25/18 12:22 Discharge Plan - Discharge Medications Prescriptions: levoFLOXacin [Levaquin] 500 mg PO DAILY #10 tab Ondansetron ODT [Zofran ODT] 4 mg PO TID PRN #12 odt PRN Reason: Nausea/Vomiting - Follow Up Plan Condition: STABLE Disposition: HOME/ ROUTINE Instructions: Urinary Tract Infection, Adult (DC) Additional Instructions: FOLLOW UP WITH DR SOTO IN HIS OFFICE ------CALL FOR APPOINTMENT CONTINUE HOME MEDICATION NEW PRESCRIPTION GIVEN BY ER DOCTOR ACTIVITY TOLERATED CALL DR SOTO OR GO TO THE EMERGENCY ROOM IF SYMPTOM RETURN OR WORSENING Referrals: YOUR,PMD [Other] Jorge L Soto MD [Staff Provider] -
[2018-04-27] MEDS ORDERED: Pneumococcal 23-Valent Vaccine IM ONE (10:00)
[2018-04-27] MEDS ORDERED: Influenza Vaccine 60 mcg/0.5 mL SYR (4YR UP) IM ONE (10:00)
--- NOTE | 2018-04-27 10:34 | DS ---
DISCHARGE DIAGNOSES: 1. Acute pyelonephritis. 2. Dehydration. HISTORY OF PRESENT ILLNESS: This is a 22-year-old male with fever, chills, rigors, bodyache, tiredness, and he has low blood count. Positive wbc and rbc in the urine. He was found to have acute pyelonephritis and the patient was treated with antibiotics. He has improved. The patient needs to continue oral antibiotics. He is afebrile. His chills have gone. He is not septic and he will be followed by me as outpatient. In the meantime, he will take 10 days of Levaquin. Condition upon discharge is stable. His cultures are urine gram negative rods and he is going home on Levaquin. Jorge L Soto MD
--- NOTE | 2018-04-28 17:18 | CP.PCM.PN ---
Subjective - Date & Time of Evaluation Date of Evaluation: 04/28/18 Time of Evaluation: 17:17 - Subjective Subjective: Received call from microbiology lab with positive blood culture result of gram negative rods. Called patient's listed phone number, no answer and no voicemail box. Discussed with Dr. Soto who has no other way of getting in touch with patient. Gave patient's information to ED administration for telegram. Objective - Vital Signs/Intake and Output Vital Signs (last 24 hours): Temp Pulse Resp BP Pulse Ox 99.7 F H 94 H 20 115/64 99 04/26/18 08:35 04/26/18 08:35 04/26/18 08:35 04/26/18 08:35 04/26/18 08:35 - Labs Labs: 04/25/18 09:13 04/25/18 09:13
== END 2018-04-26 16:00 | disposition home or self-care (01) ==
LOC: C.ER 08:10 → C.9E 12:10 → C.3T 12:29
PROVIDERS: ADMIT Internal Medicine; ATTEND Internal Medicine
DX: N10 Acute pyelonephritis (principal); E86.0 Dehydration; G20 Parkinson's disease; Z99.3 Dependence on wheelchair; R78.81 Bacteremia; Z87.440 Personal history of urinary (tract) infections; F17.210 Nicotine dependence, cigarettes, uncomplicated; G82.22 Paraplegia, incomplete; T14.8XXS Other injury of unspecified body region, sequela; X95.9XXS Assault by unspecified firearm discharge, sequela
CPT/HCPCS: 36415; 71045; 80048; 81001; 85025; 87040; 87086; 87181; 87205; 87804; 93005; 96361; 96365; 96366; 96372; 96375; 96376; 99285; G0378; J0696; J1885; J2405; J7030

== ENCOUNTER 2018-07-25 15:15 | Emergency (ER) | payer MEDICAID, OTHER ==
[2018-07-25 15:15] VITALS: BMI 19.2
[2018-07-25 15:33] VITALS: TEMP 99.6
[2018-07-25] MEDS ORDERED: Sodium Chloride 0.9% 500 ML IV ONE ×2 (16:09→17:28)
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
--- NOTE | 2018-07-25 16:30 | RAD ---
HISTORY: abd pain COMPARISON: Chest xray performed 04/25/18 TECHNIQUE: Chest, one view. FINDINGS: LUNGS: No focal consolidation. Please note that chest x-ray has limited sensitivity for the detection of pulmonary masses. PLEURA: No significant pleural effusion identified. No definite pneumothorax . CARDIOVASCULAR: The cardiomediastinal silhouette appears within normal limits of size. No significant atherosclerotic calcification present. OSSEOUS STRUCTURES: No acute osseous abnormality identified. VISUALIZED UPPER ABDOMEN: Unremarkable. OTHER FINDINGS: None. IMPRESSION: No focal consolidation.
[2018-07-25 17:06] LABS: BASO # 0.1 K/uL (0.0-0.2); BASO % 0.6 % (0.0-2.0); EOS # 0.1 K/uL (0.0-0.7); EOS % 0.9 % (0.0-4.0); HEMOGLOBIN 11.5 g/dL (12.0-18.0); LYMPH # 2.7 K/uL (1.0-4.3); MEAN CELL VOLUME 73.7 fL (80.0-94.0); MEAN CORPUSCULAR HEMOGLOBIN 23.4 pg (27.0-31.0); MEAN CORPUSCULAR HGB CONC 31.7 g/dL (33.0-37.0); MEAN PLATELET VOLUME 6.8 fL (7.2-11.7); MONO # 0.7 K/uL (0.0-0.8); MONO % 5.9 % (0.0-10.0); NEUT # 8.3 K/uL (1.8-7.0); NEUT % 69.6 % (50.0-75.0); RBC 4.91 Mil/uL (4.40-5.90); RED CELL DISTRIBUTION WIDTH 19.8 % (11.5-14.5); WHITE BLOOD COUNT 11.9 K/uL (4.8-10.8)
[2018-07-25] MEDS ORDERED: Piperacillin/Tazobact 3.375 gm 100 ML IVPB STA (17:13)
[2018-07-25] MEDS ORDERED: Vancomycin 1 gm/NS 200 ml 1 GM/200 ML BAG IVPB ONE (17:13)
[2018-07-25 17:20] VITALS: BP 115/63; PULSE 78; RESP 20
[2018-07-25 17:21] LABS: BLOOD UREA NITROGEN 9 mg/dL (9-20); GFR NON-AFRICAN AMERICAN > 60
[2018-07-25 17:22] LABS: ALB/GLOB RATIO 0.7 (1.0-2.1); ALBUMIN 3.6 g/dL (3.5-5.0); AST/SGOT 24 U/L (17-59); CALCIUM 8.8 mg/dl (8.6-10.4); LIPASE 23 U/L (23-300)
[2018-07-25 17:22] LABS: VENOUS BLOOD GAS BASE EXCESS 3.3 mmol/L (0.0-2.0); VENOUS BLOOD GAS PCO2 41 mmHg (40-60); VENOUS BLOOD GAS PO2 43 mm/Hg (30-55); VENOUS BLOOD PH 7.44 (7.32-7.43)
[2018-07-25 17:24] LABS: ALT/SGPT < 6 U/L (21-72)
[2018-07-25] MEDS ORDERED: Vancomycin 1 GM 1 GM/250 ML BAG IVPB ONE (17:28)
[2018-07-25] MEDS ORDERED: Piperacillin/Tazobact 3.375 gm 100 ML IVPB ONE (17:28)
[2018-07-25 17:38] VITALS: O2SAT 98
[2018-07-25 17:39] LABS: INR 1.2; PARTIAL THROMBOPLASTIN TIME 37.3 SECONDS (21-34); PROTHROMBIN TIME 13.1 SECONDS (9.7-12.2)
[2018-07-25 17:49] LABS: SQUAMOUS EPITHIAL < 1 /hpf (0-5); URINE AMORPHOUS SEDIMENT RARE /ul (<OCC); URINE BACTERIA FEW (<OCC); URINE BILIRUBIN NEGATIVE (NEGATIVE); URINE BLOOD NEGATIVE (NEGATIVE); URINE CLARITY Hazy (Clear); URINE COLOR Yellow (YELLOW); URINE GLUCOSE (UA) NORMAL (Normal); URINE LEUKOCYTE ESTERASE 3+ Leu/uL (Negative); URINE PROTEIN NEGATIVE (NEGATIVE); URINE UROBILINOGEN NORMAL mg/dL (0.2-1.0)
== END 2018-07-25 18:15 | disposition left against medical advice (07) ==
LOC: C.ER 15:15 → UNDOADMIN 17:31 → C.9E 17:31
DX: L89.159 Pressure ulcer of sacral region, unspecified stage (principal); L08.9 Local infection of the skin and subcutaneous tissue, unspecified; G20 Parkinson's disease
CPT/HCPCS: 71045; 80053; 81001; 82803; 83690; 85025; 85610; 85651; 85730; 87040; 96365; 96367; 99285; J2543; J3370; J7040

== ENCOUNTER 2018-08-01 19:53 | Inpatient (IN) | payer OTHER ==
[2018-08-01 19:54] VITALS: BMI 19.2
[2018-08-01] MEDS ORDERED: Sodium Chloride 0.9% 1,000 ML IV ONE (21:20)
[2018-08-01] MEDS ORDERED: Piperacillin/Tazobact 3.375 gm 100 ML IV STA (21:21)
[2018-08-01] MEDS ORDERED: Ciprofloxacin 400mg/200ml D5W 400 MG/200 ML BAG IV STA (21:23)
[2018-08-01 22:01] LABS: BASO # 0.1 K/uL (0.0-0.2); BASO % 0.6 % (0.0-2.0); EOS # 0.1 K/uL (0.0-0.7); EOS % 0.4 % (0.0-4.0); HEMOGLOBIN 11.3 g/dL (12.0-18.0); LYMPH # 2.9 K/uL (1.0-4.3); LYMPH % 19.9 % (20.0-40.0); MEAN CELL VOLUME 72.6 fL (80.0-94.0); MEAN CORPUSCULAR HEMOGLOBIN 22.7 pg (27.0-31.0); MEAN CORPUSCULAR HGB CONC 31.3 g/dL (33.0-37.0); MEAN PLATELET VOLUME 6.8 fL (7.2-11.7); MONO # 0.9 K/uL (0.0-0.8); MONO % 5.8 % (0.0-10.0); NEUT # 10.8 K/uL (1.8-7.0); NEUT % 73.3 % (50.0-75.0); RBC 4.95 Mil/uL (4.40-5.90); RED CELL DISTRIBUTION WIDTH 19.4 % (11.5-14.5); WHITE BLOOD COUNT 14.7 K/uL (4.8-10.8)
[2018-08-01] MEDS ORDERED: Ciprofloxacin 400mg/200ml D5W 400 MG/200 ML BAG IVPB ONE (22:03)
[2018-08-01] MEDS ORDERED: Piperacillin/Tazobact 3.375 gm 100 ML IVPB ONE (22:03)
[2018-08-01 22:14] LABS: ALB/GLOB RATIO 0.7 (1.0-2.1); ALBUMIN 3.5 g/dL (3.5-5.0); AST/SGOT 25 U/L (17-59); BLOOD UREA NITROGEN 9 mg/dL (9-20); CALCIUM 9.3 mg/dl (8.6-10.4); GFR NON-AFRICAN AMERICAN > 60; LIPASE 17 U/L (23-300)
[2018-08-01 22:18] LABS: ALT/SGPT < 6 U/L (21-72)
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
[2018-08-02] MEDS ORDERED: cefTRIAXone IV 1 gm in Dextros 1 GM in Dextrose 5% In Water 50 ML IVPB SCH (01:30)
[2018-08-02 02:20] VITALS: RESP 20
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
[2018-08-02] MEDS: cefTRIAXone IV 1 gm in Dextros 50 ML IVPB SCH ×2 (12:38→16:56)
[2018-08-03] MEDS: Piperacillin/Tazobact 3.375 GM in Sodium Chloride 100 ML IVPB SCH ×3 (05:38→22:13)
[2018-08-03 08:17] LABS: BASO # 0.1 K/uL (0.0-0.2); BASO % 0.7 % (0.0-2.0); EOS # 0.3 K/uL (0.0-0.7); EOS % 3.7 % (0.0-4.0); HEMOGLOBIN 11.2 g/dL (12.0-18.0); LYMPH # 2.7 K/uL (1.0-4.3); LYMPH % 32.1 % (20.0-40.0); MEAN CELL VOLUME 73.9 fL (80.0-94.0); MEAN CORPUSCULAR HEMOGLOBIN 23.2 pg (27.0-31.0); MEAN CORPUSCULAR HGB CONC 31.4 g/dL (33.0-37.0); MONO # 0.7 K/uL (0.0-0.8); MONO % 8.5 % (0.0-10.0); NEUT # 4.6 K/uL (1.8-7.0); NRBC % 0.1 % (0.0-2.0); RBC 4.81 Mil/uL (4.40-5.90); RED CELL DISTRIBUTION WIDTH 19.4 % (11.5-14.5); WHITE BLOOD COUNT 8.3 K/uL (4.8-10.8)
[2018-08-03 08:26] LABS: ALB/GLOB RATIO 0.7 (1.0-2.1); ALBUMIN 3.1 g/dL (3.5-5.0); ALT/SGPT 7 U/L (21-72); AST/SGOT 23 U/L (17-59); BLOOD UREA NITROGEN 8 mg/dL (9-20); CALCIUM 8.9 mg/dl (8.6-10.4); GFR NON-AFRICAN AMERICAN > 60
[2018-08-03] MEDS: Enoxaparin 40 mg Syringe SC SCH (09:52)
--- NOTE | 2018-08-03 12:03 | CP.PCM.PN ---
Subjective - Date & Time of Evaluation Date of Evaluation: 08/03/18 Time of Evaluation: 12:02 - Subjective Subjective: AFEBRILE VS STABLE WOUND SAME ON IV AB Objective - Vital Signs/Intake and Output Vital Signs (last 24 hours): Temp Pulse Resp BP Pulse Ox 97.6 F 50 L 20 98/46 L 98 08/03/18 08:06 08/03/18 08:06 08/03/18 08:06 08/03/18 08:06 08/03/18 08:06 - Medications Medications: Current Medications Enoxaparin Sodium (Lovenox) 40 mg SC DAILY [facility] Last Admin: 08/03/18 09:52 Dose: Not Given Piperacillin Sod/Tazobactam (Sod 3.375 gm/ Sodium Chloride) 100 mls @ 200 mls/hr IVPB Q8H [facility]; Protocol Last Admin: 08/03/18 05:38 Dose: 200 mls/hr Pneumococcal Polyvalent Vaccine (Pneumovax 23 Vaccine) 0.5 ml IM .ONCE ONE Stop: 08/03/18 14:01 Quetiapine Fumarate (Seroquel) 100 mg PO HS [facility] Last Admin: 08/02/18 22:15 Dose: 100 mg - Labs Labs: 08/03/18 08:03 08/03/18 08:03 Assessment and Plan (1) Decubitus ulcer, stage 4 with infection Status: Acute (2) Paraplegia Status: Chronic
[2018-08-03] MEDS ORDERED: Oxycodone/Acetaminophen 5/325 mg Tab PO PRN ×2 (12:07→15:49)
--- NOTE | 2018-08-03 13:00 | CP.PCM.PN ---
Subjective - Date & Time of Evaluation Date of Evaluation: 08/03/18 Time of Evaluation: 12:59 - Subjective Subjective: AFEBRILE, STARTED ON IV ABX. SACRAL WOUNDS -SAME. Objective - Vital Signs/Intake and Output Vital Signs (last 24 hours): Temp Pulse Resp BP Pulse Ox 97.6 F 50 L 20 98/46 L 98 08/03/18 08:06 08/03/18 08:06 08/03/18 08:06 08/03/18 08:06 08/03/18 08:06 Intake and Output: 08/03/18 08/03/18 06:59 18:59 Intake Total 750 Balance 750 - Medications Medications: Current Medications Acetaminophen (Tylenol 325mg Tab) 650 mg PO Q6 PRN PRN Reason: Pain, moderate (4-7) Enoxaparin Sodium (Lovenox) 40 mg SC DAILY [facility] Last Admin: 08/03/18 09:52 Dose: Not Given Piperacillin Sod/Tazobactam (Sod 3.375 gm/ Sodium Chloride) 100 mls @ 200 mls/hr IVPB Q8H [facility]; Protocol Last Admin: 08/03/18 05:38 Dose: 200 mls/hr Oxycodone/Acetaminophen (Percocet 5/325 Mg Tab) 1 tab PO Q6H PRN PRN Reason: Pain, severe (8-10) Stop: 08/06/18 12:08 Last Admin: 08/03/18 12:35 Dose: 1 tab Pneumococcal Polyvalent Vaccine (Pneumovax 23 Vaccine) 0.5 ml IM .ONCE ONE Stop: 08/03/18 14:01 Quetiapine Fumarate (Seroquel) 100 mg PO [facility] Last Admin: 08/02/18 22:15 Dose: 100 mg - Labs Labs: 08/03/18 08:03 08/03/18 08:03 - Constitutional Appears: No Acute Distress - Head Exam Head Exam: NORMAL INSPECTION - Eye Exam Eye Exam: EOMI, PERRL - ENT Exam ENT Exam: Normal Oropharynx - Neck Exam Neck Exam: Normal Inspection - Respiratory Exam Respiratory Exam: Clear to Ausculation Bilateral, NORMAL BREATHING PATTERN - Cardiovascular Exam Cardiovascular Exam: REGULAR RHYTHM, +S1, +S2 - GI/Abdominal Exam GI & Abdominal Exam: Soft, Normal Bowel Sounds - Extremities Exam Extremities Exam: Normal Capillary Refill. absent: Calf Tenderness, Pedal Edema - Neurological Exam Neurological Exam: Alert, Awake, CN II-XII Intact, Oriented x3, Reflexes Normal - Psychiatric Exam Psychiatric exam: Normal Mood - Skin Skin Exam: Normal Color, Warm Assessment and Plan (1) Decubitus ulcer, stage 4 with infection Assessment & Plan: CONTINUE iv ZOSYN 3.375 iv PIGGYBACK EVERY 8 HOURLY 08/03/18. PATIENT GOT ONE DOSE OF CIPRO IN THE ER 400 MG IVPB X1 08/02/18. F/U CULTURES TO ADJUST ANTIBIOTICS. Status: Acute (2) Paraplegia Status: Chronic (3) Pressure ulcer of sacral region Assessment & Plan: LOCAL WOUND CARE. ? SURGICAL DEBRIDEMENT. VS WOUND VAC. Status: Chronic
[2018-08-03] MEDS ORDERED: Pneumococcal 23-Valent Vaccine IM ONE (14:00)
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
[2018-08-03] MEDS: Oxycodone/Acetaminophen 5/325 mg Tab PO PRN (20:45)
[2018-08-03 23:04] LABS: URINE BILIRUBIN NEGATIVE (NEGATIVE); URINE BLOOD NEGATIVE (NEGATIVE); URINE CLARITY Clear (Clear); URINE COLOR Yellow (YELLOW); URINE GLUCOSE (UA) NORMAL (Normal); URINE LEUKOCYTE ESTERASE TRACE Leu/uL (Negative); URINE PROTEIN NEGATIVE (NEGATIVE); URINE UROBILINOGEN NORMAL mg/dL (0.2-1.0)
[2018-08-04] MEDS: Oxycodone/Acetaminophen 5/325 mg Tab PO PRN ×4 (03:57→21:19)
[2018-08-04] MEDS: Piperacillin/Tazobact 3.375 GM in Sodium Chloride 100 ML IVPB SCH ×3 (05:43→21:20)
--- NOTE | 2018-08-04 06:38 | CP.PCM.PN ---
<Kulwinder Garcia - Last Filed: 08/04/18 06:53> Subjective - Date & Time of Evaluation Date of Evaluation: 08/04/18 Time of Evaluation: 06:32 - Subjective Subjective: Surgery Progress Note for Dr. Cambpell 22M seen and evaluated at bedside this morning. No acute events overnight. Complains of left sided pain. Denies drainage from wounds. Patient would like to change his own dressings. Denies f/c, n/v/d, SOB, CP, or urinary symptoms. Objective - Vital Signs/Intake and Output Vital Signs (last 24 hours): Temp Pulse Resp BP Pulse Ox 98.0 F 70 20 128/73 96 08/03/18 23:40 08/03/18 23:40 08/03/18 23:40 08/03/18 23:40 08/03/18 23:40 - Medications Medications: Current Medications Acetaminophen (Tylenol 325mg Tab) 650 mg PO Q6 PRN PRN Reason: Pain, moderate (4-7) Enoxaparin Sodium (Lovenox) 40 mg SC DAILY [facility] Last Admin: 08/03/18 09:52 Dose: Not Given Piperacillin Sod/Tazobactam (Sod 3.375 gm/ Sodium Chloride) 100 mls @ 200 mls/hr IVPB Q8H [facility]; Protocol Last Admin: 08/04/18 05:43 Dose: 200 mls/hr Multivitamins/Minerals (Therapeutic-M Tab) 1 tab PO 0800 [facility] Oxycodone/Acetaminophen (Percocet 5/325 Mg Tab) 2 tab PO Q4H PRN PRN Reason: Pain Stop: 08/06/18 20:33 Last Admin: 08/04/18 03:57 Dose: 2 tab Quetiapine Fumarate (Seroquel) 100 mg PO HS [facility] Last Admin: 08/03/18 22:12 Dose: 100 mg - Labs Labs: 08/03/18 08:03 08/03/18 08:03 - Constitutional Appears: Well, Non-toxic, No Acute Distress - Head Exam Head Exam: ATRAUMATIC, NORMAL INSPECTION, NORMOCEPHALIC - Eye Exam Eye Exam: EOMI Pupil Exam: PERRL - ENT Exam ENT Exam: Mucous Membranes Moist - Respiratory Exam Respiratory Exam: NORMAL BREATHING PATTERN. absent: Wheezes, Respiratory D istress - Cardiovascular Exam Cardiovascular Exam: REGULAR RHYTHM, +S1, +S2. absent: Murmur - GI/Abdominal Exam GI & Abdominal Exam: Soft, Normal Bowel Sounds. absent: Distended, Guarding, Tenderness, Rebound Additional comments: midline incision closed with nylon sutures - dressing c/d/i - Rectal Exam Rectal Exam: NORMAL INSPECTION - Extremities Exam Additional comments: atrophic lower extremities, paraplegic - Neurological Exam Neurological Exam: Alert, Awake, Oriented x3 - Psychiatric Exam Psychiatric exam: Normal Affect, Normal Mood - Skin Skin Exam: Dry, Intact, Normal Color, Warm Additional comments: atrophy of bilaterally lower extremities as well as decreased sensation left 10x7 and right 5x3 stage 3-4 chronic decubitus ulcers, clean red base with no necrosis or nonviable tissue, no drainage 3x2 sacral decubitus ulcer stage 3-4, clean red base with no necrosis or nonviable tissue, no drainage Assessment and Plan - Assessment and Plan (Free Text) Assessment: 22M w/ sacral and gluteal decubitus ulcers Plan: Continue local wound care Dressings - medihoney+optifoam, patient requests to change dressings himself Wound cx + for gram negative rods Recommend ID consult for appropriate antibiotic coverage Patient refuses any surgical intervention No acute surgical intervention indicated at this time Kulwinder Garcia PGY1 <Matthias Valdovinos - Last Filed: 08/04/18 12:20> Objective - Vital Signs/Intake and Output Vital Signs (last 24 hours): Temp Pulse Resp BP Pulse Ox 98.2 F 61 20 101/63 100 08/04/18 08:01 08/04/18 08:01 08/04/18 08:01 08/04/18 08:01 08/04/18 07:00 - Medications Medications: Current Medications Acetaminophen (Tylenol 325mg Tab) 650 mg PO Q6 PRN PRN Reason: Pain, moderate (4-7) Enoxaparin Sodium (Lovenox) 40 mg SC DAILY [facility] Last Admin: 08/04/18 09:11 Dose: Not Given Piperacillin Sod/Tazobactam (Sod 3.375 gm/ Sodium Chloride) 100 mls @ 200 mls/hr IVPB Q8H [facility]; Protocol Last Admin: 08/04/18 05:43 Dose: 200 mls/hr Multivitamins/Minerals (Therapeutic-M Tab) 1 tab PO 0800 [facility] Last Admin: 08/04/18 09:06 Dose: 1 tab Oxycodone/Acetaminophen (Percocet 5/325 Mg Tab) 2 tab PO Q4H PRN PRN Reason: Pain Stop: 08/06/18 20:33 Last Admin: 08/04/18 03:57 Dose: 2 tab Quetiapine Fumarate (Seroquel) 100 mg PO HS [facility] Last Admin: 08/03/18 22:12 Dose: 100 mg - Labs Labs: 08/03/18 08:03 08/03/18 08:03 Assessment and Plan - Assessment and Plan (Free Text) Plan: All medical record entries made by the resident were at my direction. I have reviewed the chart and agree that the record accurately reflects my personal performance of the history, physical exam, and medical decision making.
[2018-08-04] MEDS: Multivitamin With Minerals Tab PO SCH (09:06)
[2018-08-04] MEDS: Enoxaparin 40 mg Syringe SC SCH ×2 (09:06→09:11)
--- NOTE | 2018-08-04 12:05 | CP.PCM.PN ---
Subjective - Date & Time of Evaluation Date of Evaluation: 08/04/18 Time of Evaluation: 12:04 - Subjective Subjective: AFEBRILE VS STABLE WOUND HEALING WITH NO NECROSIS ON IV AB C/S : PROTEUS NO SURGICAL INTERVENTION PER SURGERY SERVICE Objective - Vital Signs/Intake and Output Vital Signs (last 24 hours): Temp Pulse Resp BP Pulse Ox 98.2 F 61 20 101/63 100 08/04/18 08:01 08/04/18 08:01 08/04/18 08:01 08/04/18 08:01 08/04/18 07:00 - Medications Medications: Current Medications Acetaminophen (Tylenol 325mg Tab) 650 mg PO Q6 PRN PRN Reason: Pain, moderate (4-7) Enoxaparin Sodium (Lovenox) 40 mg SC DAILY [facility] Last Admin: 08/04/18 09:11 Dose: Not Given Piperacillin Sod/Tazobactam (Sod 3.375 gm/ Sodium Chloride) 100 mls @ 200 mls/hr IVPB Q8H [facility]; Protocol Last Admin: 08/04/18 05:43 Dose: 200 mls/hr Multivitamins/Minerals (Therapeutic-M Tab) 1 tab PO 0800 [facility] Last Admin: 08/04/18 09:06 Dose: 1 tab Oxycodone/Acetaminophen (Percocet 5/325 Mg Tab) 2 tab PO Q4H PRN PRN Reason: Pain Stop: 08/06/18 20:33 Last Admin: 08/04/18 03:57 Dose: 2 tab Quetiapine Fumarate (Seroquel) 100 mg PO HS [facility] Last Admin: 08/03/18 22:12 Dose: 100 mg - Labs Labs: 08/03/18 08:03 08/03/18 08:03 Assessment and Plan (1) Decubitus ulcer, stage 4 with infection Status: Acute (2) Paraplegia Status: Chronic
--- NOTE | 2018-08-04 15:35 | CP.PCM.PN ---
Subjective - Date & Time of Evaluation Date of Evaluation: 08/04/18 Time of Evaluation: 15:35 - Subjective Subjective: AFEBRILE, ON IV ABX. SACRAL WOUNDS -DRESSED AND SEEN BY SURGERY. SURGICAL F/U APPRECIATED. LABS ; WBC IMPROVING WOUND CULTURES +VE PROTEUS MIRABLIS- PANSENSITIVE GPC YEAST SP Objective - Vital Signs/Intake and Output Vital Signs (last 24 hours): Temp Pulse Resp BP Pulse Ox 98.2 F 61 20 101/63 100 08/04/18 08:01 08/04/18 08:01 08/04/18 08:01 08/04/18 08:01 08/04/18 07:00 - Medications Medications: Current Medications Acetaminophen (Tylenol 325mg Tab) 650 mg PO Q6 PRN PRN Reason: Pain, moderate (4-7) Enoxaparin Sodium (Lovenox) 40 mg SC DAILY [facility] Last Admin: 08/04/18 09:11 Dose: Not Given Piperacillin Sod/Tazobactam (Sod 3.375 gm/ Sodium Chloride) 100 mls @ 200 mls/hr IVPB Q8H [facility]; Protocol Last Admin: 08/04/18 14:00 Dose: 200 mls/hr Multivitamins/Minerals (Therapeutic-M Tab) 1 tab PO 0800 [facility] Last Admin: 08/04/18 09:06 Dose: 1 tab Oxycodone/Acetaminophen (Percocet 5/325 Mg Tab) 2 tab PO Q4H PRN PRN Reason: Pain Stop: 08/06/18 20:33 Last Admin: 08/04/18 12:46 Dose: 2 tab Quetiapine Fumarate (Seroquel) 100 mg PO HS [facility] Last Admin: 08/03/18 22:12 Dose: 100 mg - Labs Labs: 08/03/18 08:03 08/03/18 08:03 - Constitutional Appears: No Acute Distress, Cachectic - Head Exam Head Exam: NORMAL INSPECTION - Eye Exam Eye Exam: EOMI, PERRL - ENT Exam ENT Exam: Normal Oropharynx - Neck Exam Neck Exam: Normal Inspection - Respiratory Exam Respiratory Exam: Clear to Ausculation Bilateral - Cardiovascular Exam Cardiovascular Exam: REGULAR RHYTHM, +S1, +S2 - GI/Abdominal Exam GI & Abdominal Exam: Soft, Normal Bowel Sounds - Extremities Exam Extremities Exam: Normal Capillary Refill. absent: Calf Tenderness - Neurological Exam Neurological Exam: Awake, CN II-XII Intact, Oriented x3 - Psychiatric Exam Psychiatric exam: Normal Mood - Skin Skin Exam: Warm (SACRAL DECUBITUS STAGE -3-4 +VE DRESSINGS) Assessment and Plan (1) Decubitus ulcer, stage 4 with infection Assessment & Plan: CONTINUE iv ZOSYN 3.375 iv PIGGYBACK EVERY 8 HOURLY 08/03/18. ADD IV MYCAFUNGIN 100MG IV QD DAILY 08/04/18 PATIENT GOT ONE DOSE OF CIPRO IN THE ER 400 MG IVPB X1 08/02/18. F/U CULTURES TO ADJUST ANTIBIOTICS. local wound care as per SURGERY. Status: Acute (2) Paraplegia Status: Chronic (3) Pressure ulcer of sacral region Status: Chronic
[2018-08-04] MEDS: Micafungin 100 MG in Sodium Chloride 0.9% 100 ML IV SCH (18:38)
[2018-08-05] MEDS: Piperacillin/Tazobact 3.375 GM in Sodium Chloride 100 ML IVPB SCH ×3 (05:31→21:48)
[2018-08-05] MEDS: Oxycodone/Acetaminophen 5/325 mg Tab PO PRN ×4 (06:54→20:22)
[2018-08-05] MEDS: Multivitamin With Minerals Tab PO SCH (08:18)
[2018-08-05] MEDS: Enoxaparin 40 mg Syringe SC SCH (09:33)
--- NOTE | 2018-08-05 10:36 | CP.PCM.PN ---
Subjective - Date & Time of Evaluation Date of Evaluation: 08/05/18 Time of Evaluation: 10:36 - Subjective Subjective: AFEBRILE VS STABLE WOUND HEALING WITH NO NECROSIS ON IV AB C/S : PROTEUS NO SURGICAL INTERVENTION PER SURGERY SERVICE Objective - Vital Signs/Intake and Output Vital Signs (last 24 hours): Temp Pulse Resp BP Pulse Ox 98.1 F 77 20 145/82 97 08/05/18 07:30 08/05/18 07:30 08/05/18 07:30 08/05/18 07:30 08/05/18 07:30 - Medications Medications: Current Medications Acetaminophen (Tylenol 325mg Tab) 650 mg PO Q6 PRN PRN Reason: Pain, moderate (4-7) Enoxaparin Sodium (Lovenox) 40 mg SC DAILY [facility] Last Admin: 08/05/18 09:33 Dose: Not Given Piperacillin Sod/Tazobactam (Sod 3.375 gm/ Sodium Chloride) 100 mls @ 200 mls/hr IVPB Q8H [facility]; Protocol Last Admin: 08/05/18 05:31 Dose: 200 mls/hr Micafungin Sodium 100 mg/ (Sodium Chloride) 100 mls @ 100 mls/hr IV Q24H [facility]; Protocol Last Admin: 08/04/18 18:38 Dose: 100 mls/hr Multivitamins/Minerals (Therapeutic-M Tab) 1 tab PO 0800 [facility] Last Admin: 08/05/18 08:18 Dose: 1 tab Oxycodone/Acetaminophen (Percocet 5/325 Mg Tab) 2 tab PO Q4H PRN PRN Reason: Pain Stop: 08/06/18 20:33 Last Admin: 08/05/18 06:54 Dose: 2 tab Quetiapine Fumarate (Seroquel) 100 mg PO HS [facility] Last Admin: 08/04/18 21:20 Dose: 100 mg - Labs Labs: 08/03/18 08:03 08/03/18 08:03 Assessment and Plan (1) Decubitus ulcer, stage 4 with infection Status: Acute (2) Paraplegia Status: Chronic
[2018-08-05] MEDS: Micafungin 100 MG in Sodium Chloride 0.9% 100 ML IV SCH (17:11)
--- NOTE | 2018-08-05 19:11 | CP.PCM.PN ---
Subjective - Date & Time of Evaluation Date of Evaluation: 08/05/18 Time of Evaluation: 19:11 - Subjective Subjective: AFEBRILE, CLINICALLY SAME. WOUND CULTURE +VE MULTIPLE ORGS +YEAST. PT ON IV ABX AND IV ANTFUNGALS. (cannot give fluconazole as it is contraindicated with his SERAQUIL ) Objective - Vital Signs/Intake and Output Vital Signs (last 24 hours): Temp Pulse Resp BP Pulse Ox 98.2 F 73 20 149/76 98 08/05/18 16:48 08/05/18 16:48 08/05/18 16:48 08/05/18 16:48 08/05/18 16:48 Intake and Output: 08/05/18 08/06/18 18:59 06:59 Intake Total 500 Balance 500 - Medications Medications: Current Medications Acetaminophen (Tylenol 325mg Tab) 650 mg PO Q6 PRN PRN Reason: Pain, moderate (4-7) Enoxaparin Sodium (Lovenox) 40 mg SC DAILY [facility] Last Admin: 08/05/18 09:33 Dose: Not Given Piperacillin Sod/Tazobactam (Sod 3.375 gm/ Sodium Chloride) 100 mls @ 200 mls/h r IVPB Q8H [facility]; Protocol Last Admin: 08/05/18 13:54 Dose: 200 mls/hr Micafungin Sodium 100 mg/ (Sodium Chloride) 100 mls @ 100 mls/hr IV Q24H [facility]; Protocol Last Admin: 08/05/18 17:11 Dose: 100 mls/hr Multivitamins/Minerals (Therapeutic-M Tab) 1 tab PO 0800 [facility] Last Admin: 08/05/18 08:18 Dose: 1 tab Oxycodone/Acetaminophen (Percocet 5/325 Mg Tab) 2 tab PO Q4H PRN PRN Reason: Pain Stop: 08/06/18 20:33 Last Admin: 08/05/18 15:51 Dose: 2 tab Quetiapine Fumarate (Seroquel) 100 mg PO HS [facility] Last Admin: 08/04/18 21:20 Dose: 100 mg - Labs Labs: 08/03/18 08:03 08/03/18 08:03 - Constitutional Appears: No Acute Distress, Cachectic - Head Exam Head Exam: NORMAL INSPECTION - Eye Exam Eye Exam: EOMI, PERRL - ENT Exam ENT Exam: Normal Oropharynx - Neck Exam Neck Exam: Normal Inspection - Respiratory Exam Respiratory Exam: Clear to Ausculation Bilateral, NORMAL BREATHING PATTERN - Cardiovascular Exam Cardiovascular Exam: REGULAR RHYTHM, +S1, +S2 - GI/Abdominal Exam GI & Abdominal Exam: Soft, Normal Bowel Sounds - Extremities Exam Extremities Exam: Normal Capillary Refill, Pedal Edema. absent: Calf Tenderness - Neurological Exam Neurological Exam: Alert, Awake, CN II-XII Intact, Oriented x3, Reflexes Normal - Psychiatric Exam Psychiatric exam: Normal Mood - Skin Skin Exam: Normal Color, Warm Assessment and Plan (1) Decubitus ulcer, stage 4 with infection Assessment & Plan: CONTINUE iv ZOSYN 3.375 iv PIGGYBACK EVERY 8 HOURLY 08/03/18. ADD IV MYCAFUNGIN 100MG IV QD DAILY 08/04/18 PATIENT GOT ONE DOSE OF CIPRO IN THE ER 400 MG IVPB X1 08/02/18. [facility]WC PER CONSULTANTS. Status: Acute (2) Paraplegia Status: Chronic (3) Pressure ulcer of sacral region Status: Chronic
[2018-08-06] MEDS: Oxycodone/Acetaminophen 5/325 mg Tab PO PRN ×5 (00:47→18:41)
[2018-08-06] MEDS: Piperacillin/Tazobact 3.375 GM in Sodium Chloride 100 ML IVPB SCH ×3 (05:38→21:36)
[2018-08-06] MEDS: Multivitamin With Minerals Tab PO SCH (08:06)
[2018-08-06] MEDS: Enoxaparin 40 mg Syringe SC SCH (10:09)
--- NOTE | 2018-08-06 11:54 | CP.PCM.PN ---
Subjective - Date & Time of Evaluation Date of Evaluation: 08/06/18 Time of Evaluation: 11:54 - Subjective Subjective: AFEBRILE VS STABLE WOUND HEALING WITH NO NECROSIS ON IV AB C/S : PROTEUS NO SURGICAL INTERVENTION PER SURGERY SERVICE Objective - Vital Signs/Intake and Output Vital Signs (last 24 hours): Temp Pulse Resp BP Pulse Ox 98.2 F 69 20 117/70 97 08/06/18 08:20 08/06/18 08:20 08/06/18 08:20 08/06/18 08:20 08/06/18 08:20 Intake and Output: 08/05/18 08/06/18 23:59 11:59 Intake Total 1200 Balance 1200 - Medications Medications: Current Medications Acetaminophen (Tylenol 325mg Tab) 650 mg PO Q6 PRN PRN Reason: Pain, moderate (4-7) Enoxaparin Sodium (Lovenox) 40 mg SC DAILY [facility] Last Admin: 08/06/18 10:09 Dose: Not Given Piperacillin Sod/Tazobactam (Sod 3.375 gm/ Sodium Chloride) 100 mls @ 200 mls/hr IVPB Q8H [facility]; Protocol Last Admin: 08/06/18 05:38 Dose: 200 mls/hr Micafungin Sodium 100 mg/ (Sodium Chloride) 100 mls @ 100 mls/hr IV Q24H [facility]; Protocol Last Admin: 08/05/18 17:11 Dose: 100 mls/hr Multivitamins/Minerals (Therapeutic-M Tab) 1 tab PO 0800 [facility] Last Admin: 08/06/18 08:06 Dose: 1 tab Oxycodone/Acetaminophen (Percocet 5/325 Mg Tab) 2 tab PO Q4H PRN PRN Reason: Pain Stop: 08/06/18 20:33 Last Admin: 08/06/18 10:22 Dose: 2 tab Quetiapine Fumarate (Seroquel) 100 mg PO HS [facility] Last Admin: 08/05/18 21:54 Dose: 100 mg - Labs Labs: 08/03/18 08:03 08/03/18 08:03 Assessment and Plan (1) Decubitus ulcer, stage 4 with infection Status: Acute (2) Paraplegia Status: Chronic
[2018-08-06] MEDS: Micafungin 100 MG in Sodium Chloride 0.9% 100 ML IV SCH (17:38)
[2018-08-06] MEDS ORDERED: Oxycodone/Acetaminophen 5/325 mg Tab PO STA (22:46)
--- NOTE | 2018-08-06 23:51 | CP.PCM.PN ---
Subjective - Date & Time of Evaluation Date of Evaluation: 08/06/18 Time of Evaluation: 23:51 - Subjective Subjective: AFEBRILE, ON IV ABX / LOCAL WOUND CARE PER SURGERY Objective - Vital Signs/Intake and Output Vital Signs (last 24 hours): Temp Pulse Resp BP Pulse Ox 98.7 F 94 H 20 147/70 97 08/06/18 15:00 08/06/18 15:00 08/06/18 15:00 08/06/18 15:00 08/06/18 15:00 - Medications Medications: Current Medications Acetaminophen (Tylenol 325mg Tab) 650 mg PO Q6 PRN PRN Reason: Pain, moderate (4-7) Enoxaparin Sodium (Lovenox) 40 mg SC DAILY [facility] Last Admin: 08/06/18 10:09 Dose: Not Given Piperacillin Sod/Tazobactam (Sod 3.375 gm/ Sodium Chloride) 100 mls @ 200 mls/hr IVPB Q8H [facility]; Protocol Last Admin: 08/06/18 21:36 Dose: 200 mls/hr Micafungin Sodium 100 mg/ (Sodium Chloride) 100 mls @ 100 mls/hr IV Q24H [facility]; Protocol Last Admin: 08/06/18 17:38 Dose: 100 mls/hr Multivitamins/Minerals (Therapeutic-M Tab) 1 tab PO 0800 [facility] Last Admin: 08/06/18 08:06 Dose: 1 tab Quetiapine Fumarate (Seroquel) 100 mg PO HS [facility] Last Admin: 08/06/18 21:37 Dose: 100 mg - Labs Labs: 08/03/18 08:03 08/03/18 08:03 - Constitutional Appears: No Acute Distress, Cachectic - Head Exam Head Exam: NORMAL INSPECTION - Eye Exam Eye Exam: EOMI, PERRL - ENT Exam ENT Exam: Normal Oropharynx - Neck Exam Neck Exam: Normal Inspection - Respiratory Exam Respiratory Exam: Clear to Ausculation Bilateral, NORMAL BREATHING PATTERN - Cardiovascular Exam Cardiovascular Exam: REGULAR RHYTHM, +S1, +S2 - GI/Abdominal Exam GI & Abdominal Exam: Soft, Normal Bowel Sounds - Extremities Exam Extremities Exam: absent: Calf Tenderness (B/L PARAPLEGIC) - Neurological Exam Neurological Exam: Awake, CN II-XII Intact, Oriented x3 Neuro motor strength exam: Left Upper Extremity: 5, Right Upper Extremity: 5, Left Lower Extremity: 0, Right Lower Extremity: 0 - Additional Findings Additional findings: SACRAL DEC ULCER STAGE 4. +VE DRESSING. Assessment and Plan (1) Decubitus ulcer, stage 4 with infection Assessment & Plan: CONTINUE iv ZOSYN 3.375 iv PIGGYBACK EVERY 8 HOURLY 08/03/18. ADD IV MYCAFUNGIN 100MG IV QD DAILY 08/04/18 TO DISCUSS W SURGICAL TEAM ABOUT DISPOSITION OF PT. IF CLEARED BY SURGERY -CAN DC IV ABX PO AUGMENTIN 875 MG PO BID X 2 WEEKS PO FLORSTAR 250MG PO HS DAILY X 2 WEEKS F/U WITH HOME WOUND CARE OPD THREE TIMES WEEKLY . F/U WITH HIS PMD OPD. [facility] PER CONSULTANTS. Status: Acute (2) Paraplegia Status: Chronic (3) Pressure ulcer of sacral region Status: Chronic
[2018-08-07] MEDS: Oxycodone/Acetaminophen 5/325 mg Tab PO PRN ×4 (05:42→20:14)
[2018-08-07] MEDS: Piperacillin/Tazobact 3.375 GM in Sodium Chloride 100 ML IVPB SCH ×3 (05:43→21:31)
[2018-08-07] MEDS: Enoxaparin 40 mg Syringe SC SCH (10:00)
[2018-08-07] MEDS: Multivitamin With Minerals Tab PO SCH (10:34)
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
[2018-08-07] MEDS: Micafungin 100 MG in Sodium Chloride 0.9% 100 ML IV SCH (17:14)
--- NOTE | 2018-08-07 18:22 | CP.PCM.PN ---
<Cathie Stiles - Last Filed: 08/08/18 06:14> Subjective - Date & Time of Evaluation Date of Evaluation: 08/07/18 Time of Evaluation: 16:40 - Subjective Subjective: General surgery short progress note for Dr. Estrada Stiles, PGY-2 Pt seen in wheelchair in [place] Pt currently requesting wound vac for ulcers, states that he has never been seen by surgery before, however upon further questions, pt admits to being evaluated by Dr. Garcia from the surgical and admits that he was not interested in surgical intervention, but now would like a wound vac placed. Objective - Vital Signs/Intake and Output Vital Signs (last 24 hours): Temp Pulse Resp BP Pulse Ox 98 F 75 20 145/81 97 08/07/18 15:00 08/07/18 15:00 08/07/18 15:00 08/07/18 15:00 08/07/18 15:00 Intake and Output: 08/07/18 08/07/18 06:59 18:59 Intake Total 720 Balance 720 - Medications Medications: Current Medications Acetaminophen (Tylenol 325mg Tab) 650 mg PO Q6 PRN PRN Reason: Pain, moderate (4-7) Enoxaparin Sodium (Lovenox) 40 mg SC DAILY [facility] Last Admin: 08/07/18 10:00 Dose: Not Given Piperacillin Sod/Tazobactam (Sod 3.375 gm/ Sodium Chloride) 100 mls @ 200 mls/hr IVPB Q8H [facility]; Protocol Last Admin: 08/07/18 13:29 Dose: 200 mls/hr Micafungin Sodium 100 mg/ (Sodium Chloride) 100 mls @ 100 mls/hr IV Q24H [facility]; Protocol Last Admin: 08/07/18 17:14 Dose: 100 mls/hr Multivitamins/Minerals (Therapeutic-M Tab) 1 tab PO 0800 [facility] Last Admin: 08/07/18 10:34 Dose: 1 tab Oxycodone/Acetaminophen (Percocet 5/325 Mg Tab) 2 tab PO Q4H PRN PRN Reason: Pain, severe (8-10) Stop: 08/10/18 05:34 Last Admin: 08/07/18 15:12 Dose: 2 tab Quetiapine Fumarate (Seroquel) 100 mg PO HS [facility] Last Admin: 08/06/18 21:37 Dose: 100 mg - Labs Labs: 08/03/18 08:03 08/03/18 08:03 - Constitutional Appears: Non-toxic, No Acute Distress - Head Exam Head Exam: ATRAUMATIC, NORMAL INSPECTION, NORMOCEPHALIC - Eye Exam Eye Exam: EOMI, Normal appearance - ENT Exam ENT Exam: Mucous Membranes Moist, Normal Exam - Neck Exam Neck Exam: Full ROM, Normal Inspection - Respiratory Exam Respiratory Exam: NORMAL BREATHING PATTERN - Cardiovascular Exam Cardiovascular Exam: REGULAR RHYTHM - Extremities Exam Additional comments: wheelchair bound - Neurological Exam Neurological Exam: Alert, Awake, CN II-XII Intact, Oriented x3 Assessment and Plan - Assessment and Plan (Free Text) Assessment: 22 wheelchair bound M with sacral and hip ulcers Plan: Plan to place wound vac as per previous recommendation, wound care nurse and now patient Patient to follow up with the wound care clinic in [facility] [place] for further care as per Dr. Bonifacio Stiles, PGY-2 <Matthias Valdovinos - Last Filed: 08/11/18 03:50> Objective - Vital Signs/Intake and Output Vital Signs (last 24 hours): Temp Pulse Resp BP Pulse Ox 99.4 F 100 H 20 97/59 L 97 08/09/18 07:00 08/09/18 07:00 08/09/18 07:00 08/09/18 07:00 08/09/18 07:00 - Labs Labs: 08/03/18 08:03 08/03/18 08:03 Assessment and Plan - Assessment and Plan (Free Text) Plan: All medical record entries made by the resident were at my direction. I have reviewed the chart and agree that the record accurately reflects my personal performance of the history, physical exam, and medical decision making
[2018-08-08] MEDS: Oxycodone/Acetaminophen 5/325 mg Tab PO PRN ×5 (00:19→20:36)
[2018-08-08] MEDS: Piperacillin/Tazobact 3.375 GM in Sodium Chloride 100 ML IVPB SCH (05:41)
[2018-08-08] MEDS: Multivitamin With Minerals Tab PO SCH (09:50)
[2018-08-08] MEDS: Enoxaparin 40 mg Syringe SC SCH (09:52)
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
[2018-08-08] MEDS: Micafungin 100 MG in Sodium Chloride 0.9% 100 ML IV SCH (16:34)
[2018-08-08] MEDS: Piperacill/Tazo 3.375gm in Dex 3.375 GM/50 ML BAG IVPB SCH (18:16)
[2018-08-09] MEDS: Piperacill/Tazo 3.375gm in Dex 3.375 GM/50 ML BAG IVPB SCH ×2 (01:48→10:16)
[2018-08-09] MEDS: Oxycodone/Acetaminophen 5/325 mg Tab PO PRN ×2 (03:21→10:15)
[2018-08-09 08:48] VITALS: BP 97/59; PULSE 100; TEMP 99.4; O2SAT 97
--- NOTE | 2018-08-09 09:08 | CP.PCM.PN ---
<Poli ThayerGianni - Last Filed: 08/09/18 09:36> Subjective - Date & Time of Evaluation Date of Evaluation: 08/09/18 Time of Evaluation: 08:59 - Subjective Subjective: Surgery: Dr. Miller Patient feeling fine today. Requesting wound vac to be replaced. Discussion with patient in regards to [facility] care. Patient has established care with Dr. Baxter and the past and has agreed to f/u with him as outpatient for further wound care recommendations. Objective - Vital Signs/Intake and Output Vital Signs (last 24 hours): Temp Pulse Resp BP Pulse Ox 99.4 F 100 H 20 97/59 L 97 08/09/18 07:00 08/09/18 07:00 08/09/18 07:00 08/09/18 07:00 08/09/18 07:00 - Medications Medications: Current Medications Acetaminophen (Tylenol 325mg Tab) 650 mg PO Q6 PRN PRN Reason: Pain, moderate (4-7) Enoxaparin Sodium (Lovenox) 40 mg SC DAILY [facility] Last Admin: 08/08/18 09:52 Dose: Not Given Micafungin Sodium 100 mg/ (Sodium Chloride) 100 mls @ 100 mls/hr IV Q24H [facility]; Protocol Last Admin: 08/08/18 16:34 Dose: 100 mls/hr Piperacillin Sod/Tazobactam Sod (Zosyn 3.375 Gm Iv Premix) 3.375 gm in 50 mls @ 200 mls/hr IVPB Q8H [facility]; Protocol Last Admin: 08/09/18 01:48 Dose: 200 mls/hr Multivitamins/Minerals (Therapeutic-M Tab) 1 tab PO 0800 [facility] Last Admin: 08/08/18 09:50 Dose: 1 tab Oxycodone/Acetaminophen (Percocet 5/325 Mg Tab) 2 tab PO Q4H PRN PRN Reason: Pain, severe (8-10) Stop: 08/10/18 05:34 Last Admin: 08/09/18 03:21 Dose: 2 tab Quetiapine Fumarate (Seroquel) 100 mg PO HS [facility] Last Admin: 08/08/18 22:02 Dose: 100 mg - Labs Labs: 08/03/18 08:03 08/03/18 08:03 - Constitutional Appears: Non-toxic, No Acute Distress - Head Exam Head Exam: ATRAUMATIC, NORMOCEPHALIC - Eye Exam Eye Exam: EOMI, Normal appearance - ENT Exam ENT Exam: Mucous Membranes Moist - Respiratory Exam Respiratory Exam: NORMAL BREATHING PATTERN. absent: Respiratory Distress - Cardiovascular Exam Cardiovascular Exam: REGULAR RHYTHM. absent: Tachycardia - Rectal Exam Additional comments: Bilateral ischial chronic pressure wounds L circular [id number] (length, width, depth). edges of wound with chronic hypertrophic changes, no necrotic tissue for debridement. The base of the wound with healthy pink granulation tissue - wound vac placed with bridge to L hip R circular [id number] (length, width, depth) edges of wound with chronic hypertrophic changes, no necrotic tissue for debridement. The base of the wound with healthy pink granulation tissue - wound vac placed with bridge to R hip wound vac to be connected in front with Y connector maintain wound vac a low continuous pressure at 125mmHG midline sacral wound measuring 1cmx1.5cmx0.5cm clean skin edges and base with pink healthy granulation tissue - mepilex placed Assessment and Plan - Assessment and Plan (Free Text) Assessment: 22 y/o male with chronic ischial and sacral wounds amendable for wound vac therapy Plan: -wounds and vac placement described in exam, please see above -patient needs nutritional support with multivitamins and high protein diet to promote wound healing -patient needs offloading as much as possible to promote healing -patient has established prior care with Dr. Baxter and discussed the importance of f/u with a wound care provider -patient is agreeable to seeing Dr. Baxter in office for continuation of care -cont wound vac therapy with wound vac changes Q3-Q4 days or as needed with VNS -d/w Dr. Campbell and Dr. Baxter [place] PGY4 <Matthias Miller - Last Filed: 08/11/18 03:42> Objective - Vital Signs/Intake and Output Vital Signs (last 24 hours): Temp Pulse Resp BP Pulse Ox 99.4 F 100 H 20 97/59 L 97 08/09/18 07:00 08/09/18 07:00 08/09/18 07:00 08/09/18 07:00 08/09/18 07:00 - Labs Labs: 08/03/18 08:03 05/18/19 08:03 Assessment and Plan - Assessment and Plan (Free Text) Plan: All medical record entries made by the resident were at my direction. I have reviewed the chart and agree that the record accurately reflects my personal performance of the history, physical exam, and medical decision making
[2018-08-09] MEDS: Multivitamin With Minerals Tab PO SCH (10:17)
== END 2018-08-09 15:43 | disposition home or self-care (01) | DRG 271 ==
LOC: C.ER 19:53 → C.9E 22:32 → C.6T 22:53 → OBSVTOIN 08-02 16:07
PROVIDERS: ADMIT Internal Medicine Cardiovascular Disease; ATTEND Internal Medicine Cardiovascular Disease
DX: L89.324 Pressure ulcer of left buttock, stage 4 (principal); B96.4 Proteus (mirabilis) (morganii) as the cause of diseases classified elsewhere; R32 Unspecified urinary incontinence; L89.314 Pressure ulcer of right buttock, stage 4; L08.9 Local infection of the skin and subcutaneous tissue, unspecified; G82.20 Paraplegia, unspecified; G20 Parkinson's disease; G40.909 Epilepsy, unspecified, not intractable, without status epilepticus; Z91.19 Patient's noncompliance with other medical treatment and regimen; L89.154 Pressure ulcer of sacral region, stage 4; F17.210 Nicotine dependence, cigarettes, uncomplicated